=== PATIENT | female | born 1965 | race Caucasian/White ===

== ENCOUNTER 2017-03-21 13:32 | Outpatient (CLI) | payer MEDICARE, MEDICAID ==
--- NOTE | 2017-03-21 21:48 | MRI ---
NONCONTRAST MRI CERVICAL SPINE: Date: 03-21-17 History: Cervical disc displacement. Patient complains of chronic neck pain with pain radiating to t he left arm. Comparison: 03-28-14 FINDINGS: There is straightening of the normal cervical lordotic curvature. There is anterolisthesis of C7 on T1 measuring 4 mm. Since the prior study there has been interval development of a prominent Schmorl' s node in the anterior superior endplate of the T1 vertebral body. There are endplate degenerative c hanges present at the C4-5 level. There is abnormal increased signal intensity seen within the left side facet joints at the C3-4 level with fluid signal intensity in a facet joint. These findings are thought to most likely be attributable to prominent facet degenerative changes. Cervical medullary junction has a normal MRI appearance. C2-3: No disc bulge or disc herniation. Central spinal canal and neural foramina are patent. There a re prominent facet degenerative changes on the left at this level. C3-4: There is mild loss of intervertebral disc height. There is a broad based disc osteophyte compl ex. Prominent facet degenerative changes are seen on the left as described above. Hypertrophy on the left. The right neural foramen is patent. There is moderate left sided neural foraminal narrowing. There is mild effacement of the ventral subarachnoid space. C4-5: There is disc desiccation. There is a broad based disc osteophyte complex and facet hypertroph ic changes. Again, there is effacement of the ventral subarachnoid space with stable mild narrowing of the central spinal canal. Left neural foramen is patent, but there is mild to moderate right side d neural foraminal narrowing. Neural foraminal narrowing does appear slightly improved from the prio r exam. C5-6: There is disc desiccation with loss of intervertebral disc height. There is a broad based disc osteophyte complex with ==== centrally to the right. There is mild effacement of the ventral subara chnoid space. There is moderate right and mild left sided neural foraminal narrowing similar to the prior exam. C6-7: There is mild loss of intervertebral disc height. There is a mild broad based disc osteophyte complex. This results in mild flattening of the ventral aspect of the thecal sac. Neural foramina ar e patent at this level. C7-T1: As described above, there has been interval development of anterolisthesis of C7 on T1 measur ing 4 mm. There is a broad based disc osteophyte complex present. This results in mild narrowing of the central spinal canal. There is severe right and mild left sided neural foraminal narrowing. This does represent interval change from the prior exam. Previously described moderately enlarged lymph node left aspect of the neck is not imaged on today's exam and no definite enlarged lymph node is se en in the visualized paravertebral soft tissues on today's exam. IMPRESSION: Multilevel degenerative changes which are unchanged when compared to the prior exam; although, there has been interval development of anterolisthesis of C7 on T1 measuring 4 mm with interval developme nt of severe right sided neural foraminal narrowing and mild to left neural foraminal narrowing at t his level. Remaining levels as described above. POS: [facility]
== END 2017-03-21 13:33 | disposition home or self-care (01) ==
LOC: SCSMRI 13:32
PROVIDERS: ATTEND Psychiatry & Neurology Neurology
DX: M50.220 Other cervical disc displacement, mid-cervical region, unspecified level (principal); M43.13 Spondylolisthesis, cervicothoracic region; M99.81 Other biomechanical lesions of cervical region; M47.812 Spondylosis without myelopathy or radiculopathy, cervical region
CPT/HCPCS: 72141

== ENCOUNTER 2018-04-10 10:46 | Outpatient (CLI) | payer MEDICARE, MEDICAID | END 2018-04-10 10:47 | disposition home or self-care (01) | LOC: BICMAMMO 10:46 | PROVIDERS: ATTEND Physician Assistant | DX: Z12.31 Encounter for screening mammogram for malignant neoplasm of breast (principal); R92.1 Mammographic calcification found on diagnostic imaging of breast | CPT/HCPCS: 77063; 77067 ==

== ENCOUNTER 2018-05-30 08:55 | Emergency (ER) | payer MEDICARE, MEDICAID ==
[2018-05-30 09:42] LABS: #Basophils 0.1 thou/uL (0.0-0.2); #Eosinphils 0.2 thou/uL (0.0-0.7); #Lymphocytes 1.8 thou/uL (1.20-3.40); #Monocytes 0.7 thou/uL (0.11-0.59); #Neutrophils 5.8 thou/uL (1.40-6.50); %Basophils 0.7 % (0.0-1.0); %Eosinophils 2.1 % (0.0-10.0); %Lymphocytes 20.9 % (21.0-51.0); %Monocytes 8.5 % (0.0-10.0); %Neutrophils 67.8 % (42.0-75.0); Hemoglobin 14.9 g/dL (12.0-16.0); Mean Corpuscular HGB CONC 33.4 g/dL (32.0-36.0); Mean Corpuscular Hemoglobin 31.1 pg (27.0-31.0); Mean Corpuscular Volume 93.3 fL (78.0-98.0); Mean Platelet Volume 6.2 fL (7.4-10.4); Platelet Count 352 thou/uL (130-400); RBC Distribution Width 11.5 % (11.5-14.5); White Blood Cell (WBC) Count 8.5 thou/uL (4.8-10.8)
[2018-05-30 10:02] LABS: ALT (SGPT) 15 U/L (8-55); AST (SGOT) 15 U/L (5-34); Albumin 4.3 g/dL (3.5-5.0); Alkaline Phosphatase 101 U/L (40-150); Anion Gap 13 mmol/L (10-20); BUN (Urea Nitrogen) 12 mg/dL (9.8-20.1); Bilirubin, Total 0.2 mg/dL (0.2-1.2); Calc. Creatinine Clearance 0 mL/min (70-130); Calcium 10.1 mg/dL (7.8-10.44); Carbon Dioxide 25 mmol/L (22-29); Chloride 104 mmol/L (98-107); Estimated GFR-MDRD 57; Globulin 3.8 g/dL (2.4-3.5); Glucose 96 mg/dL (70-105); Potassium 4.1 mmol/L (3.5-5.1); Protein, Total 8.1 g/dL (6.0-8.3); Sodium 138 mmol/L (136-145)
--- NOTE | 2018-05-30 10:43 | CT ---
CT BRAIN WITHOUT CONTRAST: History: Weakness, dizziness. Comparison: MRI brain from 12-10-16. FINDINGS: No acute hemorrhage or infarct. No midline shift or mass effect. Ventricular size and extraaxial CSF spaces are normal. Calvarium is intact. Paranasal sinuses and mastoids are clear. The globes are unremarkable. IMPRESSION: No acute intracranial abnormality. POS: [facility]
--- NOTE | 2018-05-30 10:44 | RAD ---
PORTABLE UPRIGHT FRONTAL CHEST RADIOGRAPH: Date: 05-30-18 Comparison: 09-13-16 History: Dizziness, cough, bronchitis. FINDINGS: Increased diffusing interstitial density noted, stable. No pneumothorax, pleural fluid, focal consoli dation or alveolar edema. Heart and mediastinal contours unremarkable. IMPRESSION: Stable nonspecific diffuse increased linear interstitial density. No focal consolidation or alveolar edema. POS: [facility]
== END 2018-05-30 11:27 | disposition home or self-care (01) ==
LOC: ERS 08:55
DX: R42 Dizziness and giddiness (principal); R53.1 Weakness; R06.02 Shortness of breath; R11.2 Nausea with vomiting, unspecified; T36.8X5A Adverse effect of other systemic antibiotics, initial encounter; J84.10 Pulmonary fibrosis, unspecified; M10.9 Gout, unspecified; F31.9 Bipolar disorder, unspecified
CPT/HCPCS: 70450; 71045; 80053; 84484; 85025; 93005; 94760

== ENCOUNTER 2018-12-15 13:26 | Outpatient (CLI) | payer MEDICARE, MEDICAID ==
--- NOTE | 2018-12-15 15:28 | MRI ---
MRI Lumbar Spine Noncontrast: HISTORY: Lower back pain. Pain in bilateral hips and legs with numbness and tingling. COMPARISON: None FINDINGS: A very tiny subcentimeter increased T2-weighted signal intensity focus is seen in the midportion left kidney too small to characterize. Remaining retroperitoneal structures demonstrate a normal nonenhanced MRI appearance. Conus medullaris is normal in morphology and terminates at the L1-2 level. Normal signal intensity is demonstrated in the bone marrow. T12-L1: There is a mild disc osteophyte complex resulting slight flattening of the ventral aspect of the subarachnoid space. Neural foramina are widely patent L1-2: There is a broad-based disc osteophyte complex with slight superior extrusion of disc material centrally and paracentrally. There is mild flattening of the anterior aspect of the thecal sac. The neural foramina are patent. L2-3: There is broad-based disc osteophyte complex with loss of intervertebral disc height. There is slight effacement of the ventral aspect of the thecal sac. The there is minimal bilateral neural foraminal narrowing. There is trace retrolisthesis of L3 on L4 L3-4: There is loss of intervertebral disc height. A broad-based disc osteophyte complex is present. Mild narrowing of the central spinal canal is noted as well as mild bilateral neural foraminal narrowing. There is trace retrolisthesis of L3 on L4. L4-5: There is a minimal disc osteophyte complex greater laterally on the left. There is no significa nt central canal narrowing. Mild bilateral neural foraminal narrowing is present.. L5-S1: There is a mild disc osteophyte complex with associated tiny annular tear involving the left p osterolateral margin of the intervertebral disc. Slight flattening of the anterior aspect of the thecal sac is present without significant central canal narrowing. The neural foramina are patent. IMPRESSION: 1. Multilevel mild disc degenerative changes. There is no high-grade narrowing of the neural foramina at any level. 2. Trace retrolisthesis of L2-L3 and L3 on L4.
== END 2018-12-15 13:27 | disposition home or self-care (01) ==
LOC: BICMRI 13:26
PROVIDERS: ATTEND Nurse Practitioner Acute Care
DX: M54.42 Lumbago with sciatica, left side (principal); M51.36 Other intervertebral disc degeneration, lumbar region
CPT/HCPCS: 72148

== ENCOUNTER 2019-02-01 13:24 | Outpatient (CLI) | payer MEDICARE, MEDICAID ==
--- NOTE | 2019-02-01 14:22 | CT ---
EXAM: CT Abdomen W Con PROVIDED CLINICAL HISTORY: Pain beneath left breast and feeling of something popping out. Hernia. COMPARISON: 12/17/2004. FINDINGS: Chronic bibasilar lung changes are seen with evidence of emphysematous changes and linear areas of mi ld scarring. Calcified granulomata are seen in the spleen. The liver, pancreas, bilateral adrenal glands, kidneys, and opacified bowel demonstrate a normal CT a ppearance. A small duodenal diverticulum is seen in the third portion of the duodenum. The appendix is visualized and normal in caliber. Vascular calcifications are seen in the abdominal aorta and involving the iliac arteries. No ventral abdominal wall hernia is appreciated. No free fluid, fluid collection, or lymphadenopathy is seen in the abdomen. Mild degenerative changes are seen in the spine with slight retrolisthesis of L3 on L4. IMPRESSION: 1. No evidence of a ventral abdominal wall hernia. 2. No acute findings are seen in the abdomen. 3. Bibasilar chronic lung changes. 4. Vascular calcifications. 5. Degenerative changes in the spine with slight retrolisthesis of L3 on L4.
== END 2019-02-01 13:25 | disposition home or self-care (01) ==
LOC: BICCT 13:24
PROVIDERS: ATTEND Physician Assistant
DX: K46.9 Unspecified abdominal hernia without obstruction or gangrene (principal); I70.90 Unspecified atherosclerosis; M43.16 Spondylolisthesis, lumbar region
CPT/HCPCS: 74160

== ENCOUNTER 2020-06-13 10:07 | Emergency (ER) | payer MEDICARE, MEDICAID ==
[2020-06-13 10:44] LABS: #Eosinphils 0.1 thou/uL (0.0-0.7); #Lymphocytes 1.2 thou/uL (1.20-3.40); #Monocytes 0.8 thou/uL (0.11-0.59); #Neutrophils 8.1 thou/uL (1.40-6.50); %Basophils 0.2 % (0.0-1.0); %Eosinophils 1.3 % (0.0-10.0); %Lymphocytes 11.8 % (21.0-51.0); %Monocytes 7.9 % (0.0-10.0); %Neutrophils 78.8 % (42.0-75.0); Mean Corpuscular HGB CONC 34.3 g/dL (32.0-36.0); Mean Corpuscular Hemoglobin 32.6 pg (27.0-31.0); Mean Corpuscular Volume 95.1 fL (78.0-98.0); Mean Platelet Volume 6.6 fL (7.4-10.4); Platelet Count 273 thou/uL (130-400); RBC Distribution Width 11.9 % (11.5-14.5); Red Blood Cell (RBC) Count 4.28 mill/uL (4.20-5.40); White Blood Cell (WBC) Count 10.3 thou/uL (4.8-10.8)
--- NOTE | 2020-06-13 11:02 | RAD ---
EXAM: XR Chest 1 View Portable PROVIDED CLINICAL HISTORY: Dyspnea COMPARISON: 03/02/2019 FINDINGS: Cardiac and mediastinal silhouette is within normal limits. There is bilateral lower lung zone airspa ce disease. No pleural fluid or pneumothorax apparent. Emphysematous changes are demonstrated. IMPRESSION: Bilateral lower lobe airspace disease. Correlate for pneumonia. Follow-up is recommended.
[2020-06-13 11:11] LABS: ALT (SGPT) 11 U/L (8-55); AST (SGOT) 17 U/L (5-34); Alkaline Phosphatase 82 U/L (40-110); Anion Gap 18 mmol/L (10-20); BUN (Urea Nitrogen) 7 mg/dL (9.8-20.1); Bilirubin, Total 0.4 mg/dL (0.2-1.2); Calc. Creatinine Clearance 0 mL/min (70-130); Carbon Dioxide 24 mmol/L (22-29); Chloride 102 mmol/L (98-107); Globulin 2.8 g/dL (2.4-3.5); Glucose 127 mg/dL (70-105); Potassium 3.8 mmol/L (3.5-5.1); Protein, Total 6.8 g/dL (6.0-8.3); Sodium 140 mmol/L (136-145)
[2020-06-13] MEDS ORDERED: Ondansetron PF 4 MG/2 ML Vial ONE (11:12)
[2020-06-13] MEDS ORDERED: Ketorolac Tromethamine 30 MG/ML VIAL ONE (11:12)
[2020-06-13 18:22] LABS: SARS-CoV-2 PCR by NAA Not Detected (NotDetected)
--- NOTE | 2020-06-28 22:17 | EKG ---
Test Reason : CP/SOB Blood Pressure : / mmHG Vent. Rate : 080 BPM Atrial Rate : 080 BPM P-R Int : 124 ms QRS Dur : 098 ms QT Int : 360 ms P-R-T Axes : 070 044 036 degrees QTc Int : 415 ms Normal sinus rhythm Possible Left atrial enlargement RSR' or QR pattern in V1 suggests right ventricular conduction delay Nonspecific ST and T wave abnormality Abnormal ECG Confirmed by JAMES GONZALEZ DO ([id number]), editorial manager TONY RANDALL ([id number] on 06/28/2020 10:17:09 PM Referred By: Confirmed By:JAMES GONZALEZ DO
== END 2020-06-13 13:57 | disposition home or self-care (01) ==
LOC: ERS 10:07
DX: J18.9 Pneumonia, unspecified organism (principal); Z20.822 Contact with and (suspected) exposure to COVID-19; M10.9 Gout, unspecified; F17.290 Nicotine dependence, other tobacco product, uncomplicated
CPT/HCPCS: 71045; 80053; 84484; 85025; 93005; 96374; 96375; 99285; U0003; U0005; 87635; J1885; J2405

== ENCOUNTER 2020-08-29 17:17 | Inpatient (IN) | payer MEDICARE, MEDICAID ==
[~2020-08-29 17:17] MED LIST: Iopamidol-370 76% 500 ML 1 ML ONE
[2020-08-29 18:19] LABS: #Eosinphils 0.2 thou/uL (0.0-0.7); #Lymphocytes 1.8 thou/uL (1.20-3.40); #Monocytes 1.2 thou/uL (0.11-0.59); #Neutrophils 11.6 thou/uL (1.40-6.50); %Basophils 0.3 % (0.0-1.0); %Lymphocytes 12.2 % (21.0-51.0); %Monocytes 7.9 % (0.0-10.0); %Neutrophils 78.6 % (42.0-75.0); Hemoglobin 8.9 g/dL (12.0-16.0); Mean Corpuscular Hemoglobin 28.7 pg (27.0-31.0); Mean Corpuscular Volume 92.5 fL (78.0-98.0); Mean Platelet Volume 6.8 fL (7.4-10.4); Platelet Count 443 thou/uL (130-400); RBC Distribution Width 12.1 % (11.5-14.5); Red Blood Cell (RBC) Count 3.09 mill/uL (4.20-5.40); White Blood Cell (WBC) Count 14.8 thou/uL (4.8-10.8)
[2020-08-29 18:47] LABS: ALT (SGPT) 9 U/L (8-55); AST (SGOT) 17 U/L (5-34); Albumin 3.9 g/dL (3.5-5.0); Alkaline Phosphatase 97 U/L (40-110); Anion Gap 17 mmol/L (10-20); BUN (Urea Nitrogen) 5 mg/dL (9.8-20.1); Bilirubin, Total 0.5 mg/dL (0.2-1.2); Calc. Creatinine Clearance 0 mL/min (70-130); Calcium 8.8 mg/dL (7.8-10.44); Carbon Dioxide 23 mmol/L (22-29); Chloride 101 mmol/L (98-107); Globulin 2.8 g/dL (2.4-3.5); Glucose 99 mg/dL (70-105); Potassium 3.3 mmol/L (3.5-5.1); Protein, Total 6.7 g/dL (6.0-8.3); Sodium 138 mmol/L (136-145)
[2020-08-29] MEDS ORDERED: Albuterol Sulfate 2.5 mg/3 ml Neb ONE (18:56)
[2020-08-29] MEDS ORDERED: Cefepime 1 GM VIAL ONE (20:38)
[2020-08-29 21:57] LABS: SARS-CoV-2 NAA Rapid Test Not Detected (NotDetected)
[2020-08-30] MEDS ORDERED: Acetaminophen 325 MG TAB PO PRN (00:15)
[2020-08-30] MEDS ORDERED: Ondansetron ODT 4 MG TAB SL PRN (00:15)
[2020-08-30] MEDS ORDERED: Ondansetron PF 4 MG/2 ML Vial IVP PRN ×2 (00:15)
[2020-08-30] MEDS ORDERED: Potassium Chloride 20 MEQ TAB PO SCH (01:45)
[2020-08-30 02:41] LABS: Bacteria/HPF None Seen HPF (None Seen); Bilirubin Negative (Negative); Blood, Urine Negative (Negative); Clarity Clear (Clear); Glucose, Urine (Dipstick) Normal (Negative); Ketone, Urine Trace mg/dL (Negative); Leukocyte Negative Leu/uL (Negative); Nitrite Negative (Negative); Protein, Urine (Dipstick) 30 mg/dL (Neg-Trace); RBC/HPF 0-3 HPF (0-3); Specific Gravity, Urine 1.048 (1.002-1.036); Squamous Epithelial 0-3 HPF (0-3); Urobilinogen Normal mg/dL (Less than 2); WBC/HPF 0-3 HPF (0-3); pH, Urine 6.5 (5.0-9.0)
[2020-08-30 02:43] LABS: Urine Culture Reflex No No
[2020-08-30] MEDS: methylPREDNISolone Sod Succ 40 MG VIAL IVPB SCH ×2 (02:56→13:23)
[2020-08-30 05:09] LABS: Iron 19 ug/dL (50-170); Iron Binding Capacity, Total 188 mcg/dL (265-497)
[2020-08-30 05:17] LABS: Anion Gap 17 mmol/L (10-20); BUN (Urea Nitrogen) 7 mg/dL (9.8-20.1); Calc. Creatinine Clearance 92 mL/min (70-130); Carbon Dioxide 23 mmol/L (22-29); Chloride 101 mmol/L (98-107); Glucose 100 mg/dL (70-105); Iron 19 ug/dL (50-170); Iron Binding Capacity, Total 188 mcg/dL (265-497); Magnesium 2.1 mg/dL (1.6-2.6); Potassium 3.4 mmol/L (3.5-5.1); Sodium 138 mmol/L (136-145)
[2020-08-30 08:18] LABS: #Lymphocytes 0.5 thou/uL (1.20-3.40); #Monocytes 0.2 thou/uL (0.11-0.59); %Eosinophils 0.1 % (0.0-10.0); %Lymphocytes 6.3 % (21.0-51.0); %Monocytes 2.3 % (0.0-10.0); %Neutrophils 91.3 % (42.0-75.0); Hemoglobin 11.9 g/dL (12.0-16.0); Mean Corpuscular HGB CONC 31.8 g/dL (32.0-36.0); Mean Corpuscular Hemoglobin 29.8 pg (27.0-31.0); Mean Corpuscular Volume 93.9 fL (78.0-98.0); Mean Platelet Volume 6.9 fL (7.4-10.4); Platelet Count 316 thou/uL (130-400); RBC Distribution Width 12.1 % (11.5-14.5); Red Blood Cell (RBC) Count 3.97 mill/uL (4.20-5.40); White Blood Cell (WBC) Count 7.7 thou/uL (4.8-10.8)
[2020-08-30 08:23] VITALS: BMI 22.4
[2020-08-30] MEDS ORDERED: HYDROcodone/Acetaminophen 10/325 mg Tablet PO PRN (12:42)
[2020-08-30] MEDS ORDERED: ALPRAZolam 0.25 MG TAB PO PRN (12:45)
[2020-08-30] MEDS: Methocarbamol 500 MG TAB PO SCH ×2 (13:23→21:21)
[2020-08-30] MEDS ORDERED: CeleCOXIB 100 MG CAP PO SCH (14:00)
[2020-08-30] MEDS ORDERED: FLUoxetine HCl 20 MG CAP PO SCH (14:00)
[2020-08-30] MEDS: guaiFENesin ER 600 MG TAB PO SCH (21:20)
[2020-08-31] MEDS: methylPREDNISolone Sod Succ 40 MG VIAL IVPB SCH ×2 (01:51→14:25)
[2020-08-31] MEDS: Methocarbamol 500 MG TAB PO SCH ×3 (05:00→20:12)
[2020-08-31 05:45] LABS: #Monocytes 0.7 thou/uL (0.11-0.59); #Neutrophils 13.9 thou/uL (1.40-6.50); %Eosinophils 0.1 % (0.0-10.0); %Lymphocytes 6.2 % (21.0-51.0); %Monocytes 4.8 % (0.0-10.0); %Neutrophils 88.8 % (42.0-75.0); Hemoglobin 11.6 g/dL (12.0-16.0); Mean Corpuscular HGB CONC 32.8 g/dL (32.0-36.0); Mean Corpuscular Hemoglobin 31.3 pg (27.0-31.0); Mean Corpuscular Volume 95.6 fL (78.0-98.0); Mean Platelet Volume 7.3 fL (7.4-10.4); Platelet Count 328 thou/uL (130-400); RBC Distribution Width 12.2 % (11.5-14.5); Red Blood Cell (RBC) Count 3.69 mill/uL (4.20-5.40); White Blood Cell (WBC) Count 15.6 thou/uL (4.8-10.8)
[2020-08-31 05:53] LABS: Anion Gap 17 mmol/L (10-20); BUN (Urea Nitrogen) 13 mg/dL (9.8-20.1); Calc. Creatinine Clearance 92 mL/min (70-130); Calcium 9.4 mg/dL (7.8-10.44); Carbon Dioxide 24 mmol/L (22-29); Chloride 100 mmol/L (98-107); Glucose 125 mg/dL (70-105); Magnesium 2.2 mg/dL (1.6-2.6); Potassium 4.1 mmol/L (3.5-5.1); Sodium 137 mmol/L (136-145)
[2020-08-31] MEDS: CeleCOXIB 100 MG CAP PO SCH (08:17)
[2020-08-31] MEDS: FLUoxetine HCl 20 MG CAP PO SCH (08:17)
[2020-08-31] MEDS: Cyanocobalamin (Vitamin B-12) 1,000 MCG TAB PO SCH (08:17)
[2020-08-31] MEDS: Pramipexole Di-HCl 0.25 MG TAB PO SCH ×3 (08:18→20:12)
[2020-08-31] MEDS: Oxybutynin ER 5 MG TAB PO SCH (08:18)
[2020-08-31] MEDS: guaiFENesin ER 600 MG TAB PO SCH ×2 (08:18→20:13)
[2020-08-31] MEDS: busPIRone HCl 10 MG TAB PO SCH (20:12)
[2020-08-31] MEDS: traZODone HCl 50 MG TAB PO SCH (20:13)
[2020-08-31] MEDS: Temazepam 15 MG CAP PO PRN (21:26)
[2020-09-01] MEDS: methylPREDNISolone Sod Succ 40 MG VIAL IVPB SCH ×2 (01:22→14:51)
[2020-09-01] MEDS: Acetaminophen 325 MG TAB PO PRN ×2 (01:25→12:04)
[2020-09-01 05:22] LABS: #Lymphocytes 0.9 thou/uL (1.20-3.40); #Monocytes 0.4 thou/uL (0.11-0.59); #Neutrophils 10.5 thou/uL (1.40-6.50); %Basophils 0.3 % (0.0-1.0); %Eosinophils 0.1 % (0.0-10.0); %Lymphocytes 7.8 % (21.0-51.0); %Monocytes 3.6 % (0.0-10.0); %Neutrophils 88.3 % (42.0-75.0); Hemoglobin 11.6 g/dL (12.0-16.0); Mean Corpuscular HGB CONC 31.5 g/dL (32.0-36.0); Mean Corpuscular Volume 95.4 fL (78.0-98.0); Platelet Count 325 thou/uL (130-400); RBC Distribution Width 12.4 % (11.5-14.5); Red Blood Cell (RBC) Count 3.88 mill/uL (4.20-5.40); White Blood Cell (WBC) Count 11.9 thou/uL (4.8-10.8)
[2020-09-01 05:45] LABS: Anion Gap 17 mmol/L (10-20); BUN (Urea Nitrogen) 20 mg/dL (9.8-20.1); Calc. Creatinine Clearance 84 mL/min (70-130); Calcium 9.3 mg/dL (7.8-10.44); Carbon Dioxide 25 mmol/L (22-29); Chloride 100 mmol/L (98-107); Glucose 126 mg/dL (70-105); Magnesium 2.3 mg/dL (1.6-2.6); Potassium 4.6 mmol/L (3.5-5.1); Sodium 137 mmol/L (136-145)
[2020-09-01] MEDS: Methocarbamol 500 MG TAB PO SCH ×3 (06:37→21:47)
[2020-09-01] MEDS: CeleCOXIB 100 MG CAP PO SCH (09:04)
[2020-09-01] MEDS: Oxybutynin ER 5 MG TAB PO SCH (09:05)
[2020-09-01] MEDS: busPIRone HCl 10 MG TAB PO SCH ×2 (09:05→21:47)
[2020-09-01] MEDS: FLUoxetine HCl 20 MG CAP PO SCH (09:05)
[2020-09-01] MEDS: Cyanocobalamin (Vitamin B-12) 1,000 MCG TAB PO SCH (09:05)
[2020-09-01] MEDS: guaiFENesin ER 600 MG TAB PO SCH ×2 (09:05→21:47)
[2020-09-01] MEDS: Pramipexole Di-HCl 0.25 MG TAB PO SCH (21:47)
[2020-09-01] MEDS: traZODone HCl 50 MG TAB PO SCH (21:47)
[2020-09-02] MEDS: Methocarbamol 500 MG TAB PO SCH ×3 (06:30→21:16)
[2020-09-02] MEDS: Cyanocobalamin (Vitamin B-12) 1,000 MCG TAB PO SCH (08:01)
[2020-09-02] MEDS: predniSONE 20 MG TAB PO SCH (08:01)
[2020-09-02] MEDS: CeleCOXIB 100 MG CAP PO SCH (08:01)
[2020-09-02] MEDS: Oxybutynin ER 5 MG TAB PO SCH (08:02)
[2020-09-02] MEDS: busPIRone HCl 10 MG TAB PO SCH ×2 (08:02→21:15)
[2020-09-02] MEDS: guaiFENesin ER 600 MG TAB PO SCH ×2 (08:02→21:16)
[2020-09-02] MEDS: FLUoxetine HCl 20 MG CAP PO SCH (08:02)
[2020-09-02] MEDS: Pramipexole Di-HCl 0.25 MG TAB PO SCH (21:16)
[2020-09-02] MEDS: traZODone HCl 50 MG TAB PO SCH (21:16)
[2020-09-02] MEDS: Acetaminophen 325 MG TAB PO PRN (21:17)
[2020-09-03] MEDS: Methocarbamol 500 MG TAB PO SCH ×3 (06:01→21:04)
[2020-09-03] MEDS: CeleCOXIB 100 MG CAP PO SCH (08:47)
[2020-09-03] MEDS: predniSONE 20 MG TAB PO SCH (08:48)
[2020-09-03] MEDS: FLUoxetine HCl 20 MG CAP PO SCH (08:49)
[2020-09-03] MEDS: guaiFENesin ER 600 MG TAB PO SCH ×2 (08:49→21:03)
[2020-09-03] MEDS: Oxybutynin ER 5 MG TAB PO SCH (08:49)
[2020-09-03] MEDS: Cyanocobalamin (Vitamin B-12) 1,000 MCG TAB PO SCH (08:49)
[2020-09-03] MEDS: busPIRone HCl 10 MG TAB PO SCH ×2 (08:50→21:03)
[2020-09-03] MEDS: Pramipexole Di-HCl 0.25 MG TAB PO SCH (21:03)
[2020-09-03] MEDS: traZODone HCl 50 MG TAB PO SCH (21:03)
[2020-09-04] MEDS: Methocarbamol 500 MG TAB PO SCH ×3 (05:49→22:24)
[2020-09-04] MEDS: guaiFENesin ER 600 MG TAB PO SCH ×2 (08:14→19:55)
[2020-09-04] MEDS: Cyanocobalamin (Vitamin B-12) 1,000 MCG TAB PO SCH (08:14)
[2020-09-04] MEDS: FLUoxetine HCl 20 MG CAP PO SCH (08:14)
[2020-09-04] MEDS: predniSONE 20 MG TAB PO SCH (08:14)
[2020-09-04] MEDS: CeleCOXIB 100 MG CAP PO SCH (08:15)
[2020-09-04] MEDS: Oxybutynin ER 5 MG TAB PO SCH (08:15)
[2020-09-04] MEDS: busPIRone HCl 10 MG TAB PO SCH ×2 (08:16→19:54)
[2020-09-04] MEDS: Pramipexole Di-HCl 0.25 MG TAB PO SCH (19:55)
[2020-09-04] MEDS: traZODone HCl 50 MG TAB PO SCH (19:55)
[2020-09-04 20:36] LABS: #Lymphocytes 1.9 thou/uL (1.20-3.40); #Monocytes 0.8 thou/uL (0.11-0.59); #Neutrophils 9.5 thou/uL (1.40-6.50); %Basophils 0.1 % (0.0-1.0); %Eosinophils 0.3 % (0.0-10.0); %Lymphocytes 15.7 % (21.0-51.0); %Monocytes 6.4 % (0.0-10.0); %Neutrophils 77.4 % (42.0-75.0); Hemoglobin 12.4 g/dL (12.0-16.0); Mean Corpuscular HGB CONC 32.4 g/dL (32.0-36.0); Mean Corpuscular Hemoglobin 30.4 pg (27.0-31.0); Mean Corpuscular Volume 93.8 fL (78.0-98.0); Mean Platelet Volume 6.3 fL (7.4-10.4); Platelet Count 448 thou/uL (130-400); RBC Distribution Width 12.2 % (11.5-14.5); Red Blood Cell (RBC) Count 4.08 mill/uL (4.20-5.40); White Blood Cell (WBC) Count 12.2 thou/uL (4.8-10.8)
[2020-09-04 20:52] LABS: Lactic Acid 2.2 mmol/L (0.5-2.2)
[2020-09-04 20:58] LABS: ALT (SGPT) 21 U/L (8-55); AST (SGOT) 12 U/L (5-34); Albumin 3.5 g/dL (3.5-5.0); Alkaline Phosphatase 73 U/L (40-110); Anion Gap 13 mmol/L (10-20); BUN (Urea Nitrogen) 24 mg/dL (9.8-20.1); Bilirubin, Total Less than 0.2 mg/dL (0.2-1.2); Calc. Creatinine Clearance 80 mL/min (70-130); Calcium 8.8 mg/dL (7.8-10.44); Carbon Dioxide 27 mmol/L (22-29); Chloride 97 mmol/L (98-107); Globulin 2.7 g/dL (2.4-3.5); Glucose 120 mg/dL (70-105); Magnesium 2.2 mg/dL (1.6-2.6); Potassium 3.9 mmol/L (3.5-5.1); Protein, Total 6.2 g/dL (6.0-8.3); Sodium 133 mmol/L (136-145)
[2020-09-04] MEDS: Temazepam 15 MG CAP PO PRN (22:24)
[2020-09-05] MEDS ORDERED: Sodium Chloride 0.9% 250 ML IV SCH (00:15)
[2020-09-05 05:19] LABS: #Basophils 0.1 thou/uL (0.0-0.2); #Eosinphils 0.1 thou/uL (0.0-0.7); #Lymphocytes 3.4 thou/uL (1.20-3.40); #Monocytes 0.9 thou/uL (0.11-0.59); #Neutrophils 6.5 thou/uL (1.40-6.50); %Basophils 0.8 % (0.0-1.0); %Eosinophils 1.1 % (0.0-10.0); %Lymphocytes 30.8 % (21.0-51.0); %Neutrophils 59.3 % (42.0-75.0); Hemoglobin 12.3 g/dL (12.0-16.0); Mean Corpuscular HGB CONC 32.5 g/dL (32.0-36.0); Mean Corpuscular Hemoglobin 30.6 pg (27.0-31.0); Mean Corpuscular Volume 94.1 fL (78.0-98.0); Mean Platelet Volume 6.3 fL (7.4-10.4); Platelet Count 421 thou/uL (130-400); RBC Distribution Width 12.3 % (11.5-14.5); Red Blood Cell (RBC) Count 4.04 mill/uL (4.20-5.40); White Blood Cell (WBC) Count 10.9 thou/uL (4.8-10.8)
[2020-09-05] MEDS: Methocarbamol 500 MG TAB PO SCH ×2 (05:26→15:32)
[2020-09-05 05:43] LABS: Lactic Acid 1.4 mmol/L (0.5-2.2)
[2020-09-05 05:47] LABS: Anion Gap 13 mmol/L (10-20); BUN (Urea Nitrogen) 20 mg/dL (9.8-20.1); Calc. Creatinine Clearance 89 mL/min (70-130); Carbon Dioxide 29 mmol/L (22-29); Chloride 99 mmol/L (98-107); Glucose 75 mg/dL (70-105); Magnesium 2.5 mg/dL (1.6-2.6); Potassium 3.9 mmol/L (3.5-5.1); Sodium 137 mmol/L (136-145)
[2020-09-05] MEDS: CeleCOXIB 100 MG CAP PO SCH (09:08)
[2020-09-05] MEDS: Oxybutynin ER 5 MG TAB PO SCH (09:09)
[2020-09-05] MEDS: busPIRone HCl 10 MG TAB PO SCH (09:10)
[2020-09-05] MEDS: Cyanocobalamin (Vitamin B-12) 1,000 MCG TAB PO SCH (09:10)
[2020-09-05] MEDS: guaiFENesin ER 600 MG TAB PO SCH (09:10)
[2020-09-05] MEDS: predniSONE 20 MG TAB PO SCH (09:11)
[2020-09-05] MEDS: FLUoxetine HCl 20 MG CAP PO SCH (09:11)
[2020-09-05 12:31] VITALS: BP 106/64; TEMP 98.7
== END 2020-09-05 15:50 | disposition home or self-care (01) | DRG 871 ==
LOC: ERS 17:17 → 2SW 22:10 → OBSVTOIN 22:10
PROVIDERS: ADMIT Internal Medicine; ATTEND Family Medicine
DX: A41.9 Sepsis, unspecified organism (principal); J96.01 Acute respiratory failure with hypoxia; J18.9 Pneumonia, unspecified organism; J84.10 Pulmonary fibrosis, unspecified; D64.9 Anemia, unspecified; F14.10 Cocaine abuse, uncomplicated; F31.9 Bipolar disorder, unspecified; F41.9 Anxiety disorder, unspecified; M10.9 Gout, unspecified; Z20.822 Contact with and (suspected) exposure to COVID-19; G89.4 Chronic pain syndrome; M54.9 Dorsalgia, unspecified; Z88.1 Allergy status to other antibiotic agents; Z79.899 Other long term (current) drug therapy; Z79.51 Long term (current) use of inhaled steroids; Z90.710 Acquired absence of both cervix and uterus
CPT/HCPCS: 0240U; 36415; 71045; 71275; 80048; 80053; 81001; 82274; 82728; 83540; 83550; 83605; 83735; 83880; 84145; 84484; 85025; 85379; 85652; 86140; 87040; 87070; 87205; 93005; 94640; 94760; 96365; 96366; 96367; 96375; 96376; G0378; J0692; J1956; J2920; J7512; J7611; J7620; Q9967

== ENCOUNTER 2020-10-06 12:20 | Outpatient (CLI) | payer MEDICARE, MEDICAID | END 2020-10-06 12:21 | disposition home or self-care (01) | LOC: BICRAD 12:20 | PROVIDERS: ATTEND Internal Medicine Critical Care Medicine | DX: R06.00 Dyspnea, unspecified (principal); J98.4 Other disorders of lung; R91.8 Other nonspecific abnormal finding of lung field | CPT/HCPCS: 71046 ==

== ENCOUNTER 2021-02-27 09:05 | Outpatient (CLI) | payer MEDICARE | END 2021-02-27 09:06 | disposition home or self-care (01) | LOC: BICRAD 09:05 | PROVIDERS: ATTEND Internal Medicine Critical Care Medicine | DX: R06.00 Dyspnea, unspecified (principal); R91.8 Other nonspecific abnormal finding of lung field | CPT/HCPCS: 71046 ==

== ENCOUNTER 2021-12-12 12:54 | Emergency (ER) | payer MEDICARE, OTHER ==
[2021-12-12 13:32] LABS: #Eosinphils 0.5 thou/uL (0.0-0.7); #Lymphocytes 1.6 thou/uL (1.20-3.40); #Monocytes 0.9 thou/uL (0.11-0.59); #Neutrophils 4.4 thou/uL (1.40-6.50); %Basophils 0.5 % (0.0-1.0); %Eosinophils 6.9 % (0.0-10.0); %Lymphocytes 21.5 % (21.0-51.0); %Monocytes 12.2 % (0.0-10.0); %Neutrophils 58.9 % (42.0-75.0); Hemoglobin 12.9 g/dL (12.0-16.0); Mean Corpuscular HGB CONC 33.9 g/dL (32.0-36.0); Mean Corpuscular Hemoglobin 33.2 pg (27.0-31.0); Mean Corpuscular Volume 98.1 fL (78.0-98.0); Mean Platelet Volume 6.3 fL (7.4-10.4); Platelet Count 304 thou/uL (130-400); RBC Distribution Width 11.7 % (11.5-14.5); Red Blood Cell (RBC) Count 3.87 mill/uL (4.20-5.40); White Blood Cell (WBC) Count 7.4 thou/uL (4.8-10.8)
[2021-12-12] MEDS ORDERED: cefTRIAXone\\ROCEPHIN 1 GM VIAL ONE (14:06)
[2021-12-12] MEDS ORDERED: methylPREDNISolone Sod Succ/PF 125 MG/2 ML VIAL ONE (14:06)
[2021-12-12 14:17] LABS: Bilirubin Negative (Negative); Blood, Urine Negative (Negative); Clarity Clear (Clear); Glucose, Urine (Dipstick) Normal (Negative); Ketone, Urine Negative (Negative); Leukocyte Negative Leu/uL (Negative); Nitrite Negative (Negative); Protein, Urine (Dipstick) 10 mg/dL (Neg-Trace); Specific Gravity, Urine 1.023 (1.002-1.036); Urobilinogen Normal mg/dL (Less than 2); pH, Urine 5.5 (5.0-9.0)
[2021-12-12 14:21] LABS: ALT (SGPT) 25 U/L (8-55); AST (SGOT) 35 U/L (5-34); Alkaline Phosphatase 90 U/L (40-110); Anion Gap 20 mmol/L (10-20); BUN (Urea Nitrogen) 15 mg/dL (9.8-20.1); Bilirubin, Total 0.4 mg/dL (0.2-1.2); CK (CPK) 60 U/L (29-168); Calc. Creatinine Clearance 0 mL/min (70-130); Calcium 9.6 mg/dL (7.8-10.44); Carbon Dioxide 22 mmol/L (22-29); Chloride 100 mmol/L (98-107); Estimated GFR 90; Globulin 3.5 g/dL (2.4-3.5); Glucose 125 mg/dL (70-105); Potassium 4.7 mmol/L (3.5-5.1); Protein, Total 7.5 g/dL (6.0-8.3); Sodium 137 mmol/L (136-145)
[2021-12-12] MEDS ORDERED: Iopamidol-370 76% 500 ML 1 ML ONE (14:34)
== END 2021-12-12 16:19 | disposition home or self-care (01) ==
LOC: ERS 12:54
DX: J84.10 Pulmonary fibrosis, unspecified (principal); F17.210 Nicotine dependence, cigarettes, uncomplicated; M19.90 Unspecified osteoarthritis, unspecified site; M10.9 Gout, unspecified; Z79.899 Other long term (current) drug therapy
CPT/HCPCS: 36415; 71045; 71275; 80053; 81003; 82550; 84484; 85025; 85379; 93005; 94640; 96374; 96375; J0696; J2930; J7620; Q9967

== ENCOUNTER 2022-01-30 15:48 | Inpatient (IN) | payer MEDICARE, OTHER ==
[2022-01-30 15:55] VITALS: BMI 17.2
[2022-01-30] MEDS ORDERED: Acetaminophen 325 MG TAB PO PRN (16:06)
[2022-01-30] MEDS ORDERED: Bisacodyl 5 MG TAB PO PRN (16:06)
[2022-01-30] MEDS ORDERED: Ondansetron PF 4 MG/2 ML Vial IVP PRN (16:06)
[2022-01-30] MEDS ORDERED: Bisacodyl 10 MG SUPP PR PRN (16:06)
[2022-01-30] MEDS ORDERED: tiZANidine HCl 4 MG TAB PO PRN (16:18)
[2022-01-30] MEDS ORDERED: Aspirin 325 mg Enteric Coated Tablet PO SCH (18:15)
[2022-01-30] MEDS: HYDROcodone/Acetaminophen 10/325 mg Tablet PO PRN (18:32)
[2022-01-30] MEDS: Mometasone/Formoterol 200/5 60 PUFF INH SCH (18:43)
[2022-01-30] MEDS: Atorvastatin Calcium 20 MG TAB PO SCH (20:42)
[2022-01-30] MEDS: Famotidine 20 MG TAB PO SCH (20:43)
[2022-01-30] MEDS: Benztropine 1 MG TAB PO SCH (20:43)
[2022-01-30] MEDS: busPIRone HCl 10 MG TAB PO SCH (20:43)
[2022-01-30] MEDS: Nicotine 14 MG PATCH TD SCH (20:43)
[2022-01-30] MEDS: Pramipexole Di-HCl 0.25 MG TAB PO SCH (20:44)
[2022-01-30] MEDS: Oxybutynin 5 MG TAB PO SCH (20:44)
[2022-01-30] MEDS: OLANZapine 5 MG TAB PO SCH (20:44)
[2022-01-30] MEDS: traZODone HCl 150 MG TAB PO SCH (20:45)
[2022-01-30] MEDS: Senokot S 8.6-50 MG TAB PO PRN (20:53)
[2022-01-30 22:03] LABS: Amphetamine Not Detected (NotDetected); Barbiturates Screen Not Detected (NotDetected); Benzodiazepine Screen Not Detected (NotDetected); Cocaine Metabolite Screen Detected (NotDetected); Methadone Not Detected (NotDetected); Methamphetamine Not Detected (NotDetected); Opiate Screen Not Detected (NotDetected); Oxycodone Screen Not Detected (NotDetected); Phencyclidine (PCP) Not Detected (NotDetected); THC/Cannabinoid Screen Not Detected (NotDetected); Tricyclic Screen Not Detected (NotDetected)
[2022-01-30] MEDS ORDERED: ZALEPLON 5 MG PO SCH (23:59)
[2022-01-31 04:57] LABS: #Lymphocytes 0.9 thou/uL (1.20-3.40); #Monocytes 0.9 thou/uL (0.11-0.59); #Neutrophils 11.1 thou/uL (1.40-6.50); %Eosinophils 0.1 % (0.0-10.0); %Lymphocytes 6.6 % (21.0-51.0); %Neutrophils 86.2 % (42.0-75.0); Hemoglobin 11.3 g/dL (12.0-16.0); Mean Corpuscular HGB CONC 33.3 g/dL (32.0-36.0); Mean Corpuscular Hemoglobin 32.7 pg (27.0-31.0); Mean Corpuscular Volume 98.3 fL (78.0-98.0); Platelet Count 297 thou/uL (130-400); RBC Distribution Width 11.6 % (11.5-14.5); Red Blood Cell (RBC) Count 3.45 mill/uL (4.20-5.40); White Blood Cell (WBC) Count 12.9 thou/uL (4.8-10.8)
[2022-01-31 05:04] LABS: Hemoglobin A1c 5.1 % (4.0-6.0)
[2022-01-31 05:19] LABS: ALT (SGPT) 11 U/L (8-55); AST (SGOT) 10 U/L (5-34); Albumin 3.7 g/dL (3.5-5.0); Alkaline Phosphatase 75 U/L (40-110); Anion Gap 12 mmol/L (10-20); BUN (Urea Nitrogen) 11 mg/dL (9.8-20.1); Bilirubin, Direct 0.1 mg/dL (0.1-0.3); Bilirubin, Total 0.2 mg/dL (0.2-1.2); Calc. Creatinine Clearance 64 mL/min (70-130); Calcium 9.6 mg/dL (7.8-10.44); Carbon Dioxide 25 mmol/L (22-29); Cardiac Risk 2.5 (Less than 4.5); Chloride 104 mmol/L (98-107); Cholesterol 118 mg/dl (< 200 Desired); Estimated GFR 100; Glucose 137 mg/dL (70-105); HDL Cholesterol 47 mg/dL (>60 Neg Risk); LDL Cholesterol, Calculated 61 mg/dL; Potassium 4.4 mmol/L (3.5-5.1); Protein, Total 6.8 g/dL (6.0-8.3); Sodium 137 mmol/L (136-145); Triglycerides 51 mg/dL (Less than 150)
[2022-01-31] MEDS: Mometasone/Formoterol 200/5 60 PUFF INH SCH ×2 (06:37→19:18)
[2022-01-31] MEDS ORDERED: Regadenoson 0.4 MG/5 ML SYRINGE ONE (08:24)
[2022-01-31] MEDS: HYDROcodone/Acetaminophen 10/325 mg Tablet PO PRN ×2 (09:38→15:43)
[2022-01-31] MEDS: Oxybutynin 5 MG TAB PO SCH ×2 (09:39→20:36)
[2022-01-31] MEDS: Famotidine 20 MG TAB PO SCH ×2 (09:39→20:35)
[2022-01-31] MEDS: FLUoxetine HCl 20 MG CAP PO SCH (09:39)
[2022-01-31] MEDS: Enoxaparin Sodium 40 MG/0.4 ML SYRINGE SC SCH (09:39)
[2022-01-31] MEDS: Cyanocobalamin (Vitamin B-12) 1,000 MCG TAB PO SCH (09:39)
[2022-01-31] MEDS: predniSONE 20 MG TAB PO SCH (09:40)
[2022-01-31] MEDS: Aspirin 81 mg Enteric Coated Tablet PO SCH (09:40)
[2022-01-31] MEDS: busPIRone HCl 10 MG TAB PO SCH ×2 (09:40→20:36)
[2022-01-31] MEDS: Nicotine 14 MG PATCH TD SCH (15:18)
[2022-01-31] MEDS ORDERED: Azithromycin 500 MG in Sodium Chloride 0.9% 250 ML 250 ML IVPB SCH (17:45)
[2022-01-31] MEDS ORDERED: cefTRIAXone\\ROCEPHIN 1 GM in Sodium Chloride 0.9% 100 ML IVPB SCH (20:00)
[2022-01-31] MEDS: OLANZapine 5 MG TAB PO SCH (20:35)
[2022-01-31] MEDS: traZODone HCl 150 MG TAB PO SCH (20:35)
[2022-01-31] MEDS: Benztropine 1 MG TAB PO SCH (20:35)
[2022-01-31] MEDS: Pramipexole Di-HCl 0.25 MG TAB PO SCH (20:35)
[2022-01-31] MEDS: Cefepime 1 GM in Sodium Chloride 0.9% 100 ML IVPB SCH (20:36)
[2022-01-31] MEDS: Atorvastatin Calcium 20 MG TAB PO SCH (20:39)
[2022-01-31] MEDS: ZALEPLON 5 MG PO SCH (21:37)
[2022-01-31] MEDS: Benzonatate 100 MG CAP PO PRN (21:39)
[2022-02-01] MEDS: HYDROcodone/Acetaminophen 10/325 mg Tablet PO PRN ×3 (03:19→18:29)
[2022-02-01 05:13] LABS: #Eosinphils 0.1 thou/uL (0.0-0.7); #Lymphocytes 2.4 thou/uL (1.20-3.40); #Neutrophils 10.1 thou/uL (1.40-6.50); %Basophils 0.3 % (0.0-1.0); %Eosinophils 0.5 % (0.0-10.0); %Lymphocytes 17.3 % (21.0-51.0); %Monocytes 7.5 % (0.0-10.0); %Neutrophils 74.4 % (42.0-75.0); Hemoglobin 11.2 g/dL (12.0-16.0); Mean Corpuscular HGB CONC 33.2 g/dL (32.0-36.0); Mean Corpuscular Hemoglobin 32.9 pg (27.0-31.0); Mean Corpuscular Volume 99.1 fL (78.0-98.0); Platelet Count 304 thou/uL (130-400); RBC Distribution Width 11.7 % (11.5-14.5); Red Blood Cell (RBC) Count 3.41 mill/uL (4.20-5.40); White Blood Cell (WBC) Count 13.6 thou/uL (4.8-10.8)
[2022-02-01 05:31] LABS: Anion Gap 12 mmol/L (10-20); BUN (Urea Nitrogen) 17 mg/dL (9.8-20.1); Calc. Creatinine Clearance 65 mL/min (70-130); Calcium 9.5 mg/dL (7.8-10.44); Carbon Dioxide 28 mmol/L (22-29); Chloride 102 mmol/L (98-107); Estimated GFR 102; Glucose 101 mg/dL (70-105); Magnesium 1.9 mg/dL (1.6-2.6); Sodium 138 mmol/L (136-145)
[2022-02-01] MEDS: Mometasone/Formoterol 200/5 60 PUFF INH SCH ×2 (06:31→18:50)
[2022-02-01] MEDS: Aspirin 81 mg Enteric Coated Tablet PO SCH (10:21)
[2022-02-01] MEDS: busPIRone HCl 10 MG TAB PO SCH ×2 (10:21→21:14)
[2022-02-01] MEDS: Famotidine 20 MG TAB PO SCH ×2 (10:22→21:14)
[2022-02-01] MEDS: Enoxaparin Sodium 40 MG/0.4 ML SYRINGE SC SCH (10:22)
[2022-02-01] MEDS: Cyanocobalamin (Vitamin B-12) 1,000 MCG TAB PO SCH (10:22)
[2022-02-01] MEDS: Oxybutynin 5 MG TAB PO SCH ×2 (10:23→21:13)
[2022-02-01] MEDS: predniSONE 20 MG TAB PO SCH (10:23)
[2022-02-01] MEDS: FLUoxetine HCl 20 MG CAP PO SCH (10:23)
[2022-02-01] MEDS: Cefepime 1 GM in Sodium Chloride 0.9% 100 ML IVPB SCH ×3 (10:36→21:13)
[2022-02-01] MEDS ORDERED: Sodium Chloride 0.9% 1,000 ML IV SCH (10:45)
[2022-02-01] MEDS: Benzonatate 100 MG CAP PO PRN (11:57)
[2022-02-01] MEDS: Nicotine 14 MG PATCH TD SCH (21:13)
[2022-02-01] MEDS: Benztropine 1 MG TAB PO SCH (21:13)
[2022-02-01] MEDS: OLANZapine 5 MG TAB PO SCH (21:13)
[2022-02-01] MEDS: Atorvastatin Calcium 20 MG TAB PO SCH (21:14)
[2022-02-01] MEDS: Pramipexole Di-HCl 0.25 MG TAB PO SCH (21:14)
[2022-02-01] MEDS: traZODone HCl 150 MG TAB PO SCH (21:14)
[2022-02-01] MEDS: ZALEPLON 5 MG PO SCH (21:47)
[2022-02-02] MEDS: HYDROcodone/Acetaminophen 10/325 mg Tablet PO PRN ×4 (05:06→23:57)
[2022-02-02 05:28] LABS: #Basophils 0.1 thou/uL (0.0-0.2); #Lymphocytes 2.3 thou/uL (1.20-3.40); #Monocytes 1.1 thou/uL (0.11-0.59); #Neutrophils 7.7 thou/uL (1.40-6.50); %Basophils 0.5 % (0.0-1.0); %Eosinophils 0.4 % (0.0-10.0); %Lymphocytes 20.3 % (21.0-51.0); %Monocytes 9.4 % (0.0-10.0); %Neutrophils 69.4 % (42.0-75.0); Hemoglobin 11.4 g/dL (12.0-16.0); Mean Corpuscular Hemoglobin 32.7 pg (27.0-31.0); Mean Platelet Volume 6.1 fL (7.4-10.4); Platelet Count 283 thou/uL (130-400); RBC Distribution Width 11.7 % (11.5-14.5); Red Blood Cell (RBC) Count 3.49 mill/uL (4.20-5.40); White Blood Cell (WBC) Count 11.1 thou/uL (4.8-10.8)
[2022-02-02 06:17] LABS: Anion Gap 13 mmol/L (10-20); BUN (Urea Nitrogen) 19 mg/dL (9.8-20.1); Calc. Creatinine Clearance 62 mL/min (70-130); Calcium 9.5 mg/dL (7.8-10.44); Carbon Dioxide 31 mmol/L (22-29); Chloride 100 mmol/L (98-107); Estimated GFR 96; Glucose 89 mg/dL (70-105); Potassium 3.9 mmol/L (3.5-5.1); Sodium 140 mmol/L (136-145)
[2022-02-02] MEDS: Mometasone/Formoterol 200/5 60 PUFF INH SCH ×2 (08:03→18:59)
[2022-02-02] MEDS: Aspirin 81 mg Enteric Coated Tablet PO SCH (08:47)
[2022-02-02] MEDS: Cefepime 1 GM in Sodium Chloride 0.9% 100 ML IVPB SCH ×2 (08:47→20:14)
[2022-02-02] MEDS: busPIRone HCl 10 MG TAB PO SCH ×2 (08:47→20:15)
[2022-02-02] MEDS: FLUoxetine HCl 20 MG CAP PO SCH (08:48)
[2022-02-02] MEDS: Oxybutynin 5 MG TAB PO SCH ×2 (08:48→20:16)
[2022-02-02] MEDS: Enoxaparin Sodium 40 MG/0.4 ML SYRINGE SC SCH (08:48)
[2022-02-02] MEDS: Cyanocobalamin (Vitamin B-12) 1,000 MCG TAB PO SCH (08:48)
[2022-02-02] MEDS: Famotidine 20 MG TAB PO SCH ×2 (08:48→20:15)
[2022-02-02] MEDS: predniSONE 20 MG TAB PO SCH (08:49)
[2022-02-02] MEDS: ZALEPLON 5 MG PO SCH (20:09)
[2022-02-02] MEDS: Senokot S 8.6-50 MG TAB PO PRN (20:14)
[2022-02-02] MEDS: Benztropine 1 MG TAB PO SCH (20:15)
[2022-02-02] MEDS: Atorvastatin Calcium 20 MG TAB PO SCH (20:15)
[2022-02-02] MEDS: traZODone HCl 150 MG TAB PO SCH (20:16)
[2022-02-02] MEDS: Nicotine 14 MG PATCH TD SCH (20:16)
[2022-02-02] MEDS: OLANZapine 5 MG TAB PO SCH (20:16)
[2022-02-02] MEDS: Pramipexole Di-HCl 0.25 MG TAB PO SCH (20:16)
[2022-02-03 05:13] LABS: #Eosinphils 0.1 thou/uL (0.0-0.7); #Lymphocytes 2.7 thou/uL (1.20-3.40); #Monocytes 1.1 thou/uL (0.11-0.59); %Basophils 0.3 % (0.0-1.0); %Eosinophils 0.7 % (0.0-10.0); %Lymphocytes 22.7 % (21.0-51.0); %Monocytes 9.4 % (0.0-10.0); %Neutrophils 66.8 % (42.0-75.0); Hemoglobin 11.5 g/dL (12.0-16.0); Mean Corpuscular HGB CONC 32.8 g/dL (32.0-36.0); Mean Corpuscular Hemoglobin 32.4 pg (27.0-31.0); Mean Corpuscular Volume 98.9 fL (78.0-98.0); Mean Platelet Volume 5.9 fL (7.4-10.4); Platelet Count 288 thou/uL (130-400); RBC Distribution Width 11.6 % (11.5-14.5); Red Blood Cell (RBC) Count 3.54 mill/uL (4.20-5.40); White Blood Cell (WBC) Count 11.9 thou/uL (4.8-10.8)
[2022-02-03 05:40] LABS: Anion Gap 13 mmol/L (10-20); BUN (Urea Nitrogen) 19 mg/dL (9.8-20.1); Calc. Creatinine Clearance 63 mL/min (70-130); Calcium 9.4 mg/dL (7.8-10.44); Carbon Dioxide 30 mmol/L (22-29); Chloride 97 mmol/L (98-107); Estimated GFR 98; Glucose 95 mg/dL (70-105); Magnesium 2.1 mg/dL (1.6-2.6); Potassium 3.7 mmol/L (3.5-5.1); Sodium 136 mmol/L (136-145)
[2022-02-03] MEDS ORDERED: Doxycycline 100 MG CAP PO SCH (06:00)
[2022-02-03] MEDS: Mometasone/Formoterol 200/5 60 PUFF INH SCH (06:11)
[2022-02-03] MEDS: HYDROcodone/Acetaminophen 10/325 mg Tablet PO PRN (07:42)
[2022-02-03] MEDS: Enoxaparin Sodium 40 MG/0.4 ML SYRINGE SC SCH (07:51)
[2022-02-03] MEDS: busPIRone HCl 10 MG TAB PO SCH (07:51)
[2022-02-03] MEDS: Aspirin 81 mg Enteric Coated Tablet PO SCH (07:51)
[2022-02-03] MEDS: Cyanocobalamin (Vitamin B-12) 1,000 MCG TAB PO SCH (07:52)
[2022-02-03] MEDS: predniSONE 20 MG TAB PO SCH (07:52)
[2022-02-03] MEDS: Famotidine 20 MG TAB PO SCH (07:53)
[2022-02-03] MEDS: FLUoxetine HCl 20 MG CAP PO SCH (07:53)
[2022-02-03] MEDS: Oxybutynin 5 MG TAB PO SCH (07:53)
[2022-02-03 08:04] VITALS: BP 99/61; TEMP 97.4
== END 2022-02-03 11:53 | disposition home or self-care (01) | DRG 205 ==
LOC: T4-A 15:48 → 2SW 18:17 → OBSVTOIN 01-31 17:48
PROVIDERS: ADMIT Family Medicine; ATTEND Family Medicine
DX: J70.4 Drug-induced interstitial lung disorders, unspecified (principal); J96.21 Acute and chronic respiratory failure with hypoxia; J44.1 Chronic obstructive pulmonary disease with (acute) exacerbation; Z20.822 Contact with and (suspected) exposure to COVID-19; E78.5 Hyperlipidemia, unspecified; M10.9 Gout, unspecified; M19.90 Unspecified osteoarthritis, unspecified site; F31.9 Bipolar disorder, unspecified; F41.9 Anxiety disorder, unspecified; F17.210 Nicotine dependence, cigarettes, uncomplicated; F14.10 Cocaine abuse, uncomplicated; G47.00 Insomnia, unspecified; Z88.1 Allergy status to other antibiotic agents; Z99.81 Dependence on supplemental oxygen; Z79.51 Long term (current) use of inhaled steroids; Z79.899 Other long term (current) drug therapy; Z90.710 Acquired absence of both cervix and uterus; R32 Unspecified urinary incontinence; T50.995A Adverse effect of other drugs, medicaments and biological substances, initial encounter
CPT/HCPCS: 36415; 78452; 80048; 80061; 80076; 80306; 83036; 83735; 84145; 84443; 84484; 85025; 85379; 93005; 93010; 93017; 93306; 94640; 96372; 96374; A9500; G0378; J0692; J1650; J1956; J2785; J3490; J7050; J7512; J7620

== ENCOUNTER 2022-03-22 11:13 | Inpatient (IN) | payer MEDICARE, MEDICAID ==
[2022-03-22] MEDS ORDERED: Ipratropium Bromide 2.5 ml Neb ONE ×2 (12:01→13:24)
[2022-03-22] MEDS ORDERED: Albuterol Sulfate 2.5 mg/3 ml Neb ONE ×2 (12:01→13:24)
[2022-03-22 12:23] LABS: Actual Bicarbonate (HCO3a) 24.1 mEq/L (22-28); Analyzer IN Cardio ER; Base Excess (BEa) 0.5 mEq/L (-2.0 to +3.0); CO2 Tension 34.8 mmHg (35.0-45.0); Calcium, Ionized (arterial) 1.12 mmol/L (1.12-1.30); Carboxyhemoglobin (COHb) 0.1 gm% (0.0-3.0); Potassium - ABG Lab 3.67 mmol/L (3.70-5.30); pH, Arterial 7.46 (7.35-7.45)
[2022-03-22 12:34] LABS: #Eosinphils 0.3 thou/uL (0.0-0.7); #Lymphocytes 1.5 thou/uL (1.20-3.40); #Neutrophils 8.6 thou/uL (1.40-6.50); %Basophils 0.3 % (0.0-1.0); %Eosinophils 2.9 % (0.0-10.0); %Lymphocytes 12.8 % (21.0-51.0); %Monocytes 8.4 % (0.0-10.0); %Neutrophils 75.7 % (42.0-75.0); Hemoglobin 10.9 g/dL (12.0-16.0); Mean Corpuscular Hemoglobin 31.2 pg (27.0-31.0); Mean Corpuscular Volume 94.6 fl (78.0-98.0); Mean Platelet Volume 6.8 fL (7.4-10.4); Platelet Count 361 thou/uL (130-400); RBC Distribution Width 11.5 % (11.5-14.5); Red Blood Cell (RBC) Count 3.48 mill/uL (4.20-5.40); White Blood Cell (WBC) Count 11.4 thou/uL (4.8-10.8)
[2022-03-22 12:35] LABS: Puncture Site RRA
[2022-03-22] MEDS ORDERED: methylPREDNISolone Sod Succ/PF 125 MG/2 ML VIAL ONE (12:45)
[2022-03-22] MEDS ORDERED: cefTRIAXone\\ROCEPHIN 1 GM VIAL ONE ×2 (12:45→13:38)
[2022-03-22] MEDS ORDERED: Lidocaine 1% MPF 2 ML VIAL ONE (13:04)
[2022-03-22 13:06] LABS: ALT (SGPT) 17 U/L (8-55); AST (SGOT) 20 U/L (5-34); Albumin 3.6 g/dL (3.5-5.0); Alkaline Phosphatase 114 U/L (40-110); Anion Gap 14 mmol/L (10-20); BUN (Urea Nitrogen) 13 mg/dL (9.8-20.1); Bilirubin, Total 0.3 mg/dL (0.2-1.2); Calc. Creatinine Clearance 0 mL/min (70-130); Calcium 9.6 mg/dL (7.8-10.44); Carbon Dioxide 26 mmol/L (22-29); Chloride 101 mmol/L (98-107); Estimated GFR 102; Globulin 3.5 g/dL (2.4-3.5); Glucose 131 mg/dL (70-105); Lipase 16 U/L (8-78); Potassium 3.8 mmol/L (3.5-5.1); Protein, Total 7.1 g/dL (6.0-8.3); Sodium 137 mmol/L (136-145)
[2022-03-22 14:07] LABS: SARS-CoV-2 NAA Rapid Test Not Detected (NotDetected)
[2022-03-22] MEDS ORDERED: Acetaminophen 325 MG TAB PO PRN (15:12)
[2022-03-22] MEDS ORDERED: Ondansetron PF 4 MG/2 ML Vial IVP PRN (15:12)
[2022-03-22] MEDS: Doxycycline 100 MG CAP PO SCH (16:22)
[2022-03-22 16:43] VITALS: BMI 18.1
[2022-03-22 17:44] LABS: Bacteria/HPF None Seen HPF (None Seen); Bilirubin Negative (Negative); Blood, Urine Negative (Negative); Clarity Clear (Clear); Glucose, Urine (Dipstick) 300 mg/dL (Negative); Ketone, Urine Negative (Negative); Leukocyte Negative Leu/uL (Negative); Nitrite Negative (Negative); Protein, Urine (Dipstick) Negative (Neg-Trace); RBC/HPF 0-3 HPF (0-3); Specific Gravity, Urine 1.008 (1.002-1.036); Squamous Epithelial 0-3 HPF (0-3); Urobilinogen Normal mg/dL (Less than 2); WBC/HPF 0-3 HPF (0-3); pH, Urine 5.5 (5.0-9.0)
[2022-03-22 17:47] LABS: Urine Culture Reflex No No
[2022-03-22 17:50] LABS: Amphetamine Not Detected (NotDetected); Barbiturates Screen Not Detected (NotDetected); Benzodiazepine Screen Not Detected (NotDetected); Cocaine Metabolite Screen Detected (NotDetected); Methadone Not Detected (NotDetected); Methamphetamine Not Detected (NotDetected); Opiate Screen Not Detected (NotDetected); Oxycodone Screen Not Detected (NotDetected); Phencyclidine (PCP) Not Detected (NotDetected); THC/Cannabinoid Screen Not Detected (NotDetected); Tricyclic Screen Not Detected (NotDetected)
[2022-03-22] MEDS: Nicotine 14 MG PATCH TOP SCH (17:52)
[2022-03-22] MEDS: Budesonide 0.5 MG/2 ML NEB NEB SCH (19:17)
[2022-03-22] MEDS: Pramipexole Di-HCl 0.25 MG TAB PO SCH (21:50)
[2022-03-22] MEDS: Benztropine 1 MG TAB PO SCH (21:50)
[2022-03-22] MEDS: Atorvastatin Calcium 20 MG TAB PO SCH (21:52)
[2022-03-22] MEDS: OLANZapine 5 MG TAB PO SCH (21:52)
[2022-03-22] MEDS: CeleCOXIB 100 MG CAP PO SCH (21:52)
[2022-03-22] MEDS: busPIRone HCl 10 MG TAB PO SCH (21:52)
[2022-03-22] MEDS: traZODone HCl 150 MG TAB PO SCH (21:53)
[2022-03-22] MEDS: Oxybutynin 5 MG TAB PO SCH (21:53)
[2022-03-22] MEDS: Benzonatate 100 MG CAP PO PRN (22:59)
[2022-03-22] MEDS: HYDROcodone/Acetaminophen 10/325 mg Tablet PO PRN (23:00)
[2022-03-22] MEDS ORDERED: ZALEPLON 5 MG PO SCH (23:15)
[2022-03-23 06:14] LABS: #Lymphocytes 0.9 thou/uL (1.20-3.40); #Neutrophils 12.1 thou/uL (1.40-6.50); %Basophils 0.1 % (0.0-1.0); %Eosinophils 0.1 % (0.0-10.0); %Lymphocytes 6.5 % (21.0-51.0); %Monocytes 7.1 % (0.0-10.0); %Neutrophils 86.3 % (42.0-75.0); Hemoglobin 9.6 g/dL (12.0-16.0); Mean Corpuscular HGB CONC 32.2 g/dL (32.0-36.0); Mean Corpuscular Hemoglobin 31.1 pg (27.0-31.0); Mean Corpuscular Volume 96.7 fl (78.0-98.0); Mean Platelet Volume 6.6 fL (7.4-10.4); Platelet Count 355 thou/uL (130-400); RBC Distribution Width 11.5 % (11.5-14.5); Red Blood Cell (RBC) Count 3.08 mill/uL (4.20-5.40)
[2022-03-23 06:42] LABS: ALT (SGPT) 22 U/L (8-55); AST (SGOT) 23 U/L (5-34); Albumin 3.3 g/dL (3.5-5.0); Alkaline Phosphatase 107 U/L (40-110); Anion Gap 13 mmol/L (10-20); BUN (Urea Nitrogen) 14 mg/dL (9.8-20.1); Bilirubin, Total 0.2 mg/dL (0.2-1.2); Calc. Creatinine Clearance 77 mL/min (70-130); Calcium 9.4 mg/dL (7.8-10.44); Carbon Dioxide 23 mmol/L (22-29); Chloride 107 mmol/L (98-107); Estimated GFR 104; Globulin 3.2 g/dL (2.4-3.5); Glucose 128 mg/dL (70-105); Potassium 4.3 mmol/L (3.5-5.1); Protein, Total 6.5 g/dL (6.0-8.3); Sodium 139 mmol/L (136-145)
[2022-03-23] MEDS: Budesonide 0.5 MG/2 ML NEB NEB SCH ×2 (06:55→18:50)
[2022-03-23] MEDS: CeleCOXIB 100 MG CAP PO SCH ×2 (08:58→20:25)
[2022-03-23] MEDS: FLUoxetine HCl 20 MG CAP PO SCH (08:59)
[2022-03-23] MEDS: Oxybutynin 5 MG TAB PO SCH ×2 (08:59→20:24)
[2022-03-23] MEDS: Enoxaparin Sodium 40 MG/0.4 ML SYRINGE SC SCH (08:59)
[2022-03-23] MEDS: predniSONE 20 MG TAB PO SCH (08:59)
[2022-03-23] MEDS: busPIRone HCl 10 MG TAB PO SCH ×2 (08:59→20:24)
[2022-03-23] MEDS ORDERED: FLU VACC QS2022-23(6MOS UP)/PF 60 MCG/0.5 ML SYRINGE IM ONE (09:00)
[2022-03-23] MEDS: Benzonatate 100 MG CAP PO PRN ×3 (09:01→20:23)
[2022-03-23] MEDS: HYDROcodone/Acetaminophen 10/325 mg Tablet PO PRN ×3 (09:01→21:39)
[2022-03-23] MEDS: cefTRIAXone\\ROCEPHIN 2 GM in Sodium Chloride 0.9% 100 ML IVPB SCH (13:56)
[2022-03-23] MEDS: Doxycycline 100 MG CAP PO SCH (13:56)
[2022-03-23] MEDS: Nicotine 14 MG PATCH TOP SCH (16:47)
[2022-03-23 19:05] LABS: Legionella Urinary Ag Negative (Negative); Strep pneumo Urine Ag NEGATIVE (NEGATIVE)
[2022-03-23] MEDS: OLANZapine 5 MG TAB PO SCH (20:24)
[2022-03-23] MEDS: Pramipexole Di-HCl 0.25 MG TAB PO SCH (20:24)
[2022-03-23] MEDS: Benztropine 1 MG TAB PO SCH (20:24)
[2022-03-23] MEDS: Atorvastatin Calcium 20 MG TAB PO SCH (20:25)
[2022-03-23] MEDS: traZODone HCl 150 MG TAB PO SCH (20:25)
[2022-03-23] MEDS: tiZANidine HCl 4 MG TAB PO PRN (20:28)
[2022-03-23] MEDS ORDERED: ZALEPLON PO SCH (21:00)
[2022-03-23] MEDS ORDERED: Zolpidem Tartrate 5 MG TAB PO SCH (21:00)
[2022-03-23] MEDS: ZALEPLON 5 MG PO SCH (21:33)
[2022-03-24] MEDS: Budesonide 0.5 MG/2 ML NEB NEB SCH ×2 (06:47→19:13)
[2022-03-24] MEDS: busPIRone HCl 10 MG TAB PO SCH ×2 (08:53→20:43)
[2022-03-24] MEDS: CeleCOXIB 100 MG CAP PO SCH ×2 (08:54→20:43)
[2022-03-24] MEDS: predniSONE 20 MG TAB PO SCH (08:54)
[2022-03-24] MEDS: Oxybutynin 5 MG TAB PO SCH ×2 (08:54→20:43)
[2022-03-24] MEDS: FLUoxetine HCl 20 MG CAP PO SCH (08:54)
[2022-03-24] MEDS: Enoxaparin Sodium 40 MG/0.4 ML SYRINGE SC SCH (08:54)
[2022-03-24] MEDS: HYDROcodone/Acetaminophen 10/325 mg Tablet PO PRN ×3 (08:58→20:44)
[2022-03-24] MEDS: Benzonatate 100 MG CAP PO PRN ×3 (08:59→20:44)
[2022-03-24] MEDS: cefTRIAXone\\ROCEPHIN 2 GM in Sodium Chloride 0.9% 100 ML IVPB SCH (14:29)
[2022-03-24] MEDS: Doxycycline 100 MG CAP PO SCH (15:45)
[2022-03-24] MEDS: Nicotine 14 MG PATCH TOP SCH (17:37)
[2022-03-24] MEDS: tiZANidine HCl 4 MG TAB PO PRN (20:42)
[2022-03-24] MEDS: Pramipexole Di-HCl 0.25 MG TAB PO SCH (20:42)
[2022-03-24] MEDS: Benztropine 1 MG TAB PO SCH (20:42)
[2022-03-24] MEDS: OLANZapine 5 MG TAB PO SCH (20:43)
[2022-03-24] MEDS: Atorvastatin Calcium 20 MG TAB PO SCH (20:44)
[2022-03-24] MEDS: traZODone HCl 150 MG TAB PO SCH (20:44)
[2022-03-24] MEDS: ZALEPLON 5 MG PO SCH (21:10)
[2022-03-25] MEDS: Budesonide 0.5 MG/2 ML NEB NEB SCH ×2 (07:25→18:47)
[2022-03-25] MEDS: predniSONE 20 MG TAB PO SCH (08:59)
[2022-03-25] MEDS: CeleCOXIB 100 MG CAP PO SCH ×2 (08:59→21:10)
[2022-03-25] MEDS: Oxybutynin 5 MG TAB PO SCH ×2 (08:59→21:11)
[2022-03-25] MEDS: busPIRone HCl 10 MG TAB PO SCH ×2 (08:59→21:09)
[2022-03-25] MEDS: Enoxaparin Sodium 40 MG/0.4 ML SYRINGE SC SCH (09:00)
[2022-03-25] MEDS: FLUoxetine HCl 20 MG CAP PO SCH (09:00)
[2022-03-25] MEDS: HYDROcodone/Acetaminophen 10/325 mg Tablet PO PRN ×3 (09:02→21:11)
[2022-03-25] MEDS: Benzonatate 100 MG CAP PO PRN ×3 (09:02→21:10)
[2022-03-25] MEDS: Senokot S 8.6-50 MG TAB PO PRN ×2 (09:16→21:34)
[2022-03-25] MEDS: cefTRIAXone\\ROCEPHIN 2 GM in Sodium Chloride 0.9% 100 ML IVPB SCH (13:04)
[2022-03-25] MEDS: Nicotine 14 MG PATCH TOP SCH (16:45)
[2022-03-25] MEDS: Benztropine 1 MG TAB PO SCH (21:10)
[2022-03-25] MEDS: Pramipexole Di-HCl 0.25 MG TAB PO SCH (21:10)
[2022-03-25] MEDS: OLANZapine 5 MG TAB PO SCH (21:10)
[2022-03-25] MEDS: tiZANidine HCl 4 MG TAB PO PRN (21:11)
[2022-03-25] MEDS: Atorvastatin Calcium 20 MG TAB PO SCH (21:11)
[2022-03-25] MEDS: traZODone HCl 150 MG TAB PO SCH (21:11)
[2022-03-25] MEDS: ZALEPLON 5 MG PO SCH (21:34)
[2022-03-26] MEDS: Budesonide 0.5 MG/2 ML NEB NEB SCH ×2 (07:09→18:30)
[2022-03-26 08:08] LABS: #Eosinphils 0.2 thou/uL (0.0-0.7); #Lymphocytes 2.6 thou/uL (1.20-3.40); #Monocytes 0.7 thou/uL (0.11-0.59); #Neutrophils 5.5 thou/uL (1.40-6.50); %Basophils 0.4 % (0.0-1.0); %Eosinophils 1.9 % (0.0-10.0); %Lymphocytes 28.7 % (21.0-51.0); %Monocytes 7.7 % (0.0-10.0); %Neutrophils 61.3 % (42.0-75.0); Hemoglobin 10.8 g/dL (12.0-16.0); Mean Corpuscular HGB CONC 32.4 g/dL (32.0-36.0); Mean Corpuscular Hemoglobin 31.7 pg (27.0-31.0); Mean Corpuscular Volume 97.9 fl (78.0-98.0); Mean Platelet Volume 5.9 fL (7.4-10.4); Platelet Count 437 thou/uL (130-400); RBC Distribution Width 11.5 % (11.5-14.5); Red Blood Cell (RBC) Count 3.39 mill/uL (4.20-5.40); White Blood Cell (WBC) Count 8.9 thou/uL (4.8-10.8)
[2022-03-26 08:24] LABS: Anion Gap 10 mmol/L (10-20); BUN (Urea Nitrogen) 21 mg/dL (9.8-20.1); Calc. Creatinine Clearance 65 mL/min (70-130); Calcium 9.5 mg/dL (7.8-10.44); Carbon Dioxide 32 mmol/L (22-29); Chloride 98 mmol/L (98-107); Estimated GFR 96; Glucose 88 mg/dL (70-105); Potassium 3.7 mmol/L (3.5-5.1); Sodium 136 mmol/L (136-145)
[2022-03-26] MEDS: HYDROcodone/Acetaminophen 10/325 mg Tablet PO PRN ×3 (08:37→21:10)
[2022-03-26] MEDS: Oxybutynin 5 MG TAB PO SCH ×2 (08:38→21:11)
[2022-03-26] MEDS: Benzonatate 100 MG CAP PO PRN ×3 (08:38→23:37)
[2022-03-26] MEDS: predniSONE 20 MG TAB PO SCH (08:38)
[2022-03-26] MEDS: FLUoxetine HCl 20 MG CAP PO SCH (08:38)
[2022-03-26] MEDS: Senokot S 8.6-50 MG TAB PO PRN (08:38)
[2022-03-26] MEDS: CeleCOXIB 100 MG CAP PO SCH ×2 (08:38→21:12)
[2022-03-26] MEDS: Enoxaparin Sodium 40 MG/0.4 ML SYRINGE SC SCH (08:39)
[2022-03-26] MEDS: busPIRone HCl 10 MG TAB PO SCH ×2 (08:39→21:12)
[2022-03-26] MEDS ORDERED: Cepastat Lozenges 1 LOZ PO PRN (10:36)
[2022-03-26] MEDS: cefTRIAXone\\ROCEPHIN 2 GM in Sodium Chloride 0.9% 100 ML IVPB SCH (12:41)
[2022-03-26] MEDS: Nicotine 14 MG PATCH TOP SCH (15:51)
[2022-03-26] MEDS: Pramipexole Di-HCl 0.25 MG TAB PO SCH (21:09)
[2022-03-26] MEDS: Benztropine 1 MG TAB PO SCH (21:09)
[2022-03-26] MEDS: Doxycycline 100 MG CAP PO SCH (21:10)
[2022-03-26] MEDS: traZODone HCl 150 MG TAB PO SCH (21:11)
[2022-03-26] MEDS: guaiFENesin/DM ER PO SCH (21:12)
[2022-03-26] MEDS: Atorvastatin Calcium 20 MG TAB PO SCH (21:13)
[2022-03-26] MEDS: OLANZapine 5 MG TAB PO SCH (21:13)
[2022-03-26] MEDS: ZALEPLON 5 MG PO SCH (21:55)
[2022-03-27] MEDS: Budesonide 0.5 MG/2 ML NEB NEB SCH ×2 (07:13→18:42)
[2022-03-27] MEDS: Enoxaparin Sodium 40 MG/0.4 ML SYRINGE SC SCH (08:12)
[2022-03-27] MEDS: Doxycycline 100 MG CAP PO SCH ×2 (08:12→21:11)
[2022-03-27] MEDS: busPIRone HCl 10 MG TAB PO SCH ×2 (08:12→21:14)
[2022-03-27] MEDS: predniSONE 20 MG TAB PO SCH (08:13)
[2022-03-27] MEDS: CeleCOXIB 100 MG CAP PO SCH ×2 (08:14→21:12)
[2022-03-27] MEDS: Oxybutynin 5 MG TAB PO SCH ×2 (08:15→21:11)
[2022-03-27] MEDS: guaiFENesin/DM ER PO SCH ×2 (08:15→21:14)
[2022-03-27] MEDS: FLUoxetine HCl 20 MG CAP PO SCH (08:15)
[2022-03-27] MEDS: Benzonatate 100 MG CAP PO PRN ×3 (08:17→23:11)
[2022-03-27] MEDS: HYDROcodone/Acetaminophen 10/325 mg Tablet PO PRN ×3 (08:17→21:13)
[2022-03-27] MEDS: cefTRIAXone\\ROCEPHIN 2 GM in Sodium Chloride 0.9% 100 ML IVPB SCH (12:11)
[2022-03-27] MEDS: Nicotine 14 MG PATCH TOP SCH (17:17)
[2022-03-27] MEDS: Pramipexole Di-HCl 0.25 MG TAB PO SCH (21:11)
[2022-03-27] MEDS: traZODone HCl 150 MG TAB PO SCH (21:12)
[2022-03-27] MEDS: Atorvastatin Calcium 20 MG TAB PO SCH (21:12)
[2022-03-27] MEDS: OLANZapine 5 MG TAB PO SCH (21:14)
[2022-03-27] MEDS: ZALEPLON 5 MG PO SCH (21:14)
[2022-03-27] MEDS: Benztropine 1 MG TAB PO SCH (21:14)
[2022-03-28] MEDS: HYDROcodone/Acetaminophen 10/325 mg Tablet PO PRN ×3 (03:50→17:48)
[2022-03-28] MEDS: Budesonide 0.5 MG/2 ML NEB NEB SCH ×2 (06:58→18:13)
[2022-03-28] MEDS: CeleCOXIB 100 MG CAP PO SCH ×2 (08:18→21:24)
[2022-03-28] MEDS: Benzonatate 100 MG CAP PO PRN ×2 (08:19→17:48)
[2022-03-28] MEDS: guaiFENesin/DM ER PO SCH ×2 (08:19→21:24)
[2022-03-28] MEDS: Oxybutynin 5 MG TAB PO SCH ×2 (08:19→21:25)
[2022-03-28] MEDS: Doxycycline 100 MG CAP PO SCH (08:19)
[2022-03-28] MEDS: FLUoxetine HCl 20 MG CAP PO SCH (08:20)
[2022-03-28] MEDS: Enoxaparin Sodium 40 MG/0.4 ML SYRINGE SC SCH (08:20)
[2022-03-28] MEDS: busPIRone HCl 10 MG TAB PO SCH ×2 (08:22→21:25)
[2022-03-28] MEDS ORDERED: predniSONE 20 MG TAB PO SCH (12:15)
[2022-03-28] MEDS: Nicotine 14 MG PATCH TOP SCH (16:51)
[2022-03-28] MEDS: traZODone HCl 150 MG TAB PO SCH (21:24)
[2022-03-28] MEDS: Benztropine 1 MG TAB PO SCH (21:24)
[2022-03-28] MEDS: Pramipexole Di-HCl 0.25 MG TAB PO SCH (21:24)
[2022-03-28] MEDS: Cefdinir 300 MG CAP PO SCH (21:25)
[2022-03-28] MEDS: Atorvastatin Calcium 20 MG TAB PO SCH (21:25)
[2022-03-28] MEDS: ZALEPLON 5 MG PO SCH (21:25)
[2022-03-28] MEDS: OLANZapine 5 MG TAB PO SCH (21:25)
[2022-03-29] MEDS: HYDROcodone/Acetaminophen 10/325 mg Tablet PO PRN ×4 (00:01→20:33)
[2022-03-29] MEDS: Budesonide 0.5 MG/2 ML NEB NEB SCH ×2 (06:47→18:58)
[2022-03-29] MEDS: Enoxaparin Sodium 40 MG/0.4 ML SYRINGE SC SCH (08:14)
[2022-03-29] MEDS: CeleCOXIB 100 MG CAP PO SCH ×2 (08:15→20:23)
[2022-03-29] MEDS: Cefdinir 300 MG CAP PO SCH ×2 (08:15→20:23)
[2022-03-29] MEDS: FLUoxetine HCl 20 MG CAP PO SCH (08:16)
[2022-03-29] MEDS: Oxybutynin 5 MG TAB PO SCH ×2 (08:16→20:24)
[2022-03-29] MEDS: busPIRone HCl 10 MG TAB PO SCH ×2 (08:16→20:23)
[2022-03-29] MEDS: predniSONE 20 MG TAB PO SCH (08:18)
[2022-03-29] MEDS: guaiFENesin/DM ER PO SCH ×2 (08:20→20:24)
[2022-03-29] MEDS: Nicotine 14 MG PATCH TOP SCH (16:33)
[2022-03-29] MEDS: Atorvastatin Calcium 20 MG TAB PO SCH (20:23)
[2022-03-29] MEDS: Benztropine 1 MG TAB PO SCH (20:23)
[2022-03-29] MEDS: OLANZapine 5 MG TAB PO SCH (20:24)
[2022-03-29] MEDS: Pramipexole Di-HCl 0.25 MG TAB PO SCH (20:25)
[2022-03-29] MEDS: traZODone HCl 150 MG TAB PO SCH (20:25)
[2022-03-29] MEDS: Benzonatate 100 MG CAP PO PRN (20:33)
[2022-03-29] MEDS: ZALEPLON 5 MG PO SCH (21:08)
[2022-03-30] MEDS: Budesonide 0.5 MG/2 ML NEB NEB SCH ×2 (07:09→18:53)
[2022-03-30] MEDS: Enoxaparin Sodium 40 MG/0.4 ML SYRINGE SC SCH (08:02)
[2022-03-30] MEDS: CeleCOXIB 100 MG CAP PO SCH ×2 (08:03→19:51)
[2022-03-30] MEDS: predniSONE 20 MG TAB PO SCH (08:03)
[2022-03-30] MEDS: guaiFENesin/DM ER PO SCH ×2 (08:03→19:54)
[2022-03-30] MEDS: FLUoxetine HCl 20 MG CAP PO SCH (08:03)
[2022-03-30] MEDS: busPIRone HCl 10 MG TAB PO SCH ×2 (08:04→19:53)
[2022-03-30] MEDS: Cefdinir 300 MG CAP PO SCH ×2 (08:05→19:52)
[2022-03-30] MEDS: Oxybutynin 5 MG TAB PO SCH ×2 (08:05→19:52)
[2022-03-30] MEDS: Senokot S 8.6-50 MG TAB PO PRN (08:07)
[2022-03-30] MEDS: HYDROcodone/Acetaminophen 10/325 mg Tablet PO PRN ×2 (08:09→18:33)
[2022-03-30] MEDS: Nicotine 14 MG PATCH TOP SCH (16:52)
[2022-03-30] MEDS: Pramipexole Di-HCl 0.25 MG TAB PO SCH (19:50)
[2022-03-30] MEDS: Benztropine 1 MG TAB PO SCH (19:52)
[2022-03-30] MEDS: traZODone HCl 150 MG TAB PO SCH (19:53)
[2022-03-30] MEDS: OLANZapine 5 MG TAB PO SCH (19:53)
[2022-03-30] MEDS: Atorvastatin Calcium 20 MG TAB PO SCH (19:54)
[2022-03-30] MEDS: Benzonatate 100 MG CAP PO PRN (19:54)
[2022-03-30] MEDS: ZALEPLON 5 MG PO SCH (19:54)
[2022-03-31] MEDS: Budesonide 0.5 MG/2 ML NEB NEB SCH ×2 (07:22→18:20)
[2022-03-31] MEDS: CeleCOXIB 100 MG CAP PO SCH ×2 (08:58→21:33)
[2022-03-31] MEDS: Cefdinir 300 MG CAP PO SCH ×2 (08:58→21:34)
[2022-03-31] MEDS: Oxybutynin 5 MG TAB PO SCH ×2 (09:00→21:33)
[2022-03-31] MEDS: FLUoxetine HCl 20 MG CAP PO SCH (09:00)
[2022-03-31] MEDS: Benzonatate 100 MG CAP PO PRN ×2 (09:01→21:44)
[2022-03-31] MEDS: busPIRone HCl 10 MG TAB PO SCH ×2 (09:01→21:31)
[2022-03-31] MEDS: guaiFENesin/DM ER PO SCH ×2 (09:01→21:34)
[2022-03-31] MEDS: predniSONE 20 MG TAB PO SCH (09:02)
[2022-03-31] MEDS: Enoxaparin Sodium 40 MG/0.4 ML SYRINGE SC SCH (09:02)
[2022-03-31] MEDS: HYDROcodone/Acetaminophen 10/325 mg Tablet PO PRN ×3 (09:12→23:15)
[2022-03-31 10:40] LABS: #Basophils 0.1 thou/uL (0.0-0.2); #Eosinphils 0.6 thou/uL (0.0-0.7); #Lymphocytes 3.1 thou/uL (1.20-3.40); #Monocytes 1.1 thou/uL (0.11-0.59); #Neutrophils 6.8 thou/uL (1.40-6.50); %Basophils 0.5 % (0.0-1.0); %Eosinophils 5.5 % (0.0-10.0); %Lymphocytes 26.2 % (21.0-51.0); %Monocytes 9.6 % (0.0-10.0); %Neutrophils 58.3 % (42.0-75.0); Hemoglobin 11.7 g/dL (12.0-16.0); Mean Corpuscular HGB CONC 31.9 g/dL (32.0-36.0); Mean Corpuscular Hemoglobin 31.1 pg (27.0-31.0); Mean Corpuscular Volume 97.7 fl (78.0-98.0); Platelet Count 487 10x3/uL (130-400); RBC Distribution Width 12.2 % (11.5-14.5); Red Blood Cell (RBC) Count 3.75 mill/uL (4.20-5.40); White Blood Cell (WBC) Count 11.7 10x3/uL (4.8-10.8)
[2022-03-31 10:58] LABS: Anion Gap 12 mmol/L (10-20); BUN (Urea Nitrogen) 24 mg/dL (9.8-20.1); Calc. Creatinine Clearance 65 mL/min (70-130); Calcium 9.4 mg/dL (7.8-10.44); Carbon Dioxide 30 mmol/L (22-29); Chloride 98 mmol/L (98-107); Estimated GFR 96; Glucose 85 mg/dL (70-105); Potassium 4.5 mmol/L (3.5-5.1); Sodium 135 mmol/L (136-145)
[2022-03-31] MEDS: tiZANidine HCl 4 MG TAB PO PRN ×2 (11:47→21:32)
[2022-03-31] MEDS: Nicotine 14 MG PATCH TOP SCH (16:22)
[2022-03-31] MEDS: traZODone HCl 150 MG TAB PO SCH (21:32)
[2022-03-31] MEDS: Pramipexole Di-HCl 0.25 MG TAB PO SCH (21:33)
[2022-03-31] MEDS: Benztropine 1 MG TAB PO SCH (21:33)
[2022-03-31] MEDS: Atorvastatin Calcium 20 MG TAB PO SCH (21:34)
[2022-03-31] MEDS: OLANZapine 5 MG TAB PO SCH (21:34)
[2022-03-31] MEDS: ZALEPLON 5 MG PO SCH (21:34)
[2022-04-01] MEDS: Budesonide 0.5 MG/2 ML NEB NEB SCH ×2 (07:30→18:38)
[2022-04-01] MEDS: guaiFENesin/DM ER PO SCH ×2 (08:50→20:49)
[2022-04-01] MEDS: HYDROcodone/Acetaminophen 10/325 mg Tablet PO PRN ×3 (08:50→22:08)
[2022-04-01] MEDS: busPIRone HCl 10 MG TAB PO SCH ×2 (08:50→20:52)
[2022-04-01] MEDS: predniSONE 20 MG TAB PO SCH (08:51)
[2022-04-01] MEDS: Oxybutynin 5 MG TAB PO SCH ×2 (08:51→20:53)
[2022-04-01] MEDS: FLUoxetine HCl 20 MG CAP PO SCH (08:51)
[2022-04-01] MEDS: Enoxaparin Sodium 40 MG/0.4 ML SYRINGE SC SCH (08:52)
[2022-04-01] MEDS: Cefdinir 300 MG CAP PO SCH ×2 (08:52→20:50)
[2022-04-01] MEDS: CeleCOXIB 100 MG CAP PO SCH ×2 (08:52→20:51)
[2022-04-01] MEDS: Senokot S 8.6-50 MG TAB PO PRN (08:54)
[2022-04-01] MEDS: Benzonatate 100 MG CAP PO PRN ×3 (08:54→22:08)
[2022-04-01] MEDS: tiZANidine HCl 4 MG TAB PO PRN (15:49)
[2022-04-01] MEDS: Nicotine 14 MG PATCH TOP SCH (17:22)
[2022-04-01] MEDS: Pramipexole Di-HCl 0.25 MG TAB PO SCH (20:49)
[2022-04-01] MEDS: Benztropine 1 MG TAB PO SCH (20:50)
[2022-04-01] MEDS: OLANZapine 5 MG TAB PO SCH (20:52)
[2022-04-01] MEDS: ZALEPLON 5 MG PO SCH (20:53)
[2022-04-01] MEDS: traZODone HCl 150 MG TAB PO SCH (20:53)
[2022-04-01] MEDS: Atorvastatin Calcium 20 MG TAB PO SCH (20:53)
[2022-04-02] MEDS: HYDROcodone/Acetaminophen 10/325 mg Tablet PO PRN ×3 (05:15→17:16)
[2022-04-02] MEDS: Budesonide 0.5 MG/2 ML NEB NEB SCH ×2 (07:01→18:34)
[2022-04-02] MEDS: Cefdinir 300 MG CAP PO SCH ×2 (08:10→20:19)
[2022-04-02] MEDS: busPIRone HCl 10 MG TAB PO SCH ×2 (08:10→20:19)
[2022-04-02] MEDS: Enoxaparin Sodium 40 MG/0.4 ML SYRINGE SC SCH (08:10)
[2022-04-02] MEDS: predniSONE 20 MG TAB PO SCH (08:10)
[2022-04-02] MEDS: Benzonatate 100 MG CAP PO PRN ×2 (08:10→17:16)
[2022-04-02] MEDS: CeleCOXIB 100 MG CAP PO SCH ×2 (08:10→20:19)
[2022-04-02] MEDS: FLUoxetine HCl 20 MG CAP PO SCH (08:11)
[2022-04-02] MEDS: guaiFENesin/DM ER PO SCH ×2 (08:11→20:19)
[2022-04-02] MEDS: Oxybutynin 5 MG TAB PO SCH ×2 (08:11→20:19)
[2022-04-02] MEDS: Nicotine 14 MG PATCH TOP SCH (17:16)
[2022-04-02] MEDS: ZALEPLON 5 MG PO SCH (20:18)
[2022-04-02] MEDS: Pramipexole Di-HCl 0.25 MG TAB PO SCH (20:19)
[2022-04-02] MEDS: traZODone HCl 150 MG TAB PO SCH (20:19)
[2022-04-02] MEDS: Benztropine 1 MG TAB PO SCH (20:19)
[2022-04-02] MEDS: OLANZapine 5 MG TAB PO SCH (20:19)
[2022-04-02] MEDS: Atorvastatin Calcium 20 MG TAB PO SCH (20:19)
[2022-04-03] MEDS: HYDROcodone/Acetaminophen 10/325 mg Tablet PO PRN ×4 (02:13→20:47)
[2022-04-03] MEDS: Senokot S 8.6-50 MG TAB PO PRN (02:17)
[2022-04-03] MEDS: Budesonide 0.5 MG/2 ML NEB NEB SCH ×2 (06:46→19:33)
[2022-04-03] MEDS: Benzonatate 100 MG CAP PO PRN ×3 (08:51→20:45)
[2022-04-03] MEDS: CeleCOXIB 100 MG CAP PO SCH ×2 (08:52→20:46)
[2022-04-03] MEDS: predniSONE 20 MG TAB PO SCH (08:53)
[2022-04-03] MEDS: Enoxaparin Sodium 40 MG/0.4 ML SYRINGE SC SCH (08:53)
[2022-04-03] MEDS: Oxybutynin 5 MG TAB PO SCH ×2 (08:53→20:46)
[2022-04-03] MEDS: busPIRone HCl 10 MG TAB PO SCH ×2 (08:53→20:45)
[2022-04-03] MEDS: Cefdinir 300 MG CAP PO SCH ×2 (08:53→20:45)
[2022-04-03] MEDS: FLUoxetine HCl 20 MG CAP PO SCH (08:53)
[2022-04-03] MEDS: guaiFENesin/DM ER PO SCH ×2 (08:53→20:46)
[2022-04-03] MEDS: Nicotine 14 MG PATCH TOP SCH (16:24)
[2022-04-03] MEDS: ZALEPLON 5 MG PO SCH (20:44)
[2022-04-03] MEDS: Benztropine 1 MG TAB PO SCH (20:45)
[2022-04-03] MEDS: traZODone HCl 150 MG TAB PO SCH (20:46)
[2022-04-03] MEDS: Atorvastatin Calcium 20 MG TAB PO SCH (20:47)
[2022-04-03] MEDS: tiZANidine HCl 4 MG TAB PO PRN (20:54)
[2022-04-03] MEDS: Pramipexole Di-HCl 0.25 MG TAB PO SCH (20:54)
[2022-04-03] MEDS: OLANZapine 5 MG TAB PO SCH (20:55)
[2022-04-04] MEDS: HYDROcodone/Acetaminophen 10/325 mg Tablet PO PRN ×3 (03:58→18:39)
[2022-04-04] MEDS: Budesonide 0.5 MG/2 ML NEB NEB SCH ×2 (06:22→18:48)
[2022-04-04] MEDS: Enoxaparin Sodium 40 MG/0.4 ML SYRINGE SC SCH (09:03)
[2022-04-04] MEDS: CeleCOXIB 100 MG CAP PO SCH ×2 (09:03→20:35)
[2022-04-04] MEDS: busPIRone HCl 10 MG TAB PO SCH ×2 (09:04→20:35)
[2022-04-04] MEDS: guaiFENesin/DM ER PO SCH ×2 (09:04→20:36)
[2022-04-04] MEDS: Cefdinir 300 MG CAP PO SCH ×2 (09:05→20:35)
[2022-04-04] MEDS: predniSONE 20 MG TAB PO SCH (09:05)
[2022-04-04] MEDS: FLUoxetine HCl 20 MG CAP PO SCH (09:05)
[2022-04-04] MEDS: Oxybutynin 5 MG TAB PO SCH ×2 (09:05→20:36)
[2022-04-04] MEDS: Benzonatate 100 MG CAP PO PRN ×2 (12:26→18:39)
[2022-04-04] MEDS: Nicotine 14 MG PATCH TOP SCH (17:08)
[2022-04-04] MEDS: ZALEPLON 5 MG PO SCH (20:34)
[2022-04-04] MEDS: OLANZapine 5 MG TAB PO SCH (20:34)
[2022-04-04] MEDS: Benztropine 1 MG TAB PO SCH (20:35)
[2022-04-04] MEDS: Pramipexole Di-HCl 0.25 MG TAB PO SCH (20:35)
[2022-04-04] MEDS: Atorvastatin Calcium 20 MG TAB PO SCH (20:36)
[2022-04-04] MEDS: traZODone HCl 150 MG TAB PO SCH (20:36)
[2022-04-05] MEDS: HYDROcodone/Acetaminophen 10/325 mg Tablet PO PRN ×3 (03:15→14:54)
[2022-04-05] MEDS: Budesonide 0.5 MG/2 ML NEB NEB SCH (07:17)
[2022-04-05 08:34] VITALS: BP 107/73; TEMP 98.1
[2022-04-05] MEDS: Enoxaparin Sodium 40 MG/0.4 ML SYRINGE SC SCH (08:37)
[2022-04-05] MEDS: FLUoxetine HCl 20 MG CAP PO SCH (08:38)
[2022-04-05] MEDS: busPIRone HCl 10 MG TAB PO SCH (08:38)
[2022-04-05] MEDS: CeleCOXIB 100 MG CAP PO SCH (08:38)
[2022-04-05] MEDS: Oxybutynin 5 MG TAB PO SCH (08:38)
[2022-04-05] MEDS: guaiFENesin/DM ER PO SCH (08:39)
[2022-04-05] MEDS: Cefdinir 300 MG CAP PO SCH (08:39)
[2022-04-05] MEDS: predniSONE 20 MG TAB PO SCH (08:39)
[2022-04-05] MEDS: Benzonatate 100 MG CAP PO PRN (08:39)
[2022-04-05] MEDS: Nicotine 14 MG PATCH TOP SCH (16:15)
== END 2022-04-05 16:15 | DRG 196 ==
LOC: ERS 11:13 → SUATTDRO 11:13 → T4-B 15:14 → OBSVTOIN 03-23 14:34
PROVIDERS: ADMIT Internal Medicine; ATTEND Internal Medicine
DX: J84.10 Pulmonary fibrosis, unspecified (principal); Z66 Do not resuscitate; Z20.822 Contact with and (suspected) exposure to COVID-19; J15.9 Unspecified bacterial pneumonia; J96.21 Acute and chronic respiratory failure with hypoxia; J44.1 Chronic obstructive pulmonary disease with (acute) exacerbation; E44.0 Moderate protein-calorie malnutrition; Z68.1 Body mass index [BMI] 19.9 or less, adult; F14.10 Cocaine abuse, uncomplicated; M10.9 Gout, unspecified; F31.9 Bipolar disorder, unspecified; F41.9 Anxiety disorder, unspecified; F17.210 Nicotine dependence, cigarettes, uncomplicated; G47.00 Insomnia, unspecified; E78.5 Hyperlipidemia, unspecified; Z28.21 Immunization not carried out because of patient refusal; Z88.1 Allergy status to other antibiotic agents; Z99.81 Dependence on supplemental oxygen; Z79.899 Other long term (current) drug therapy; Z79.51 Long term (current) use of inhaled steroids; Z79.52 Long term (current) use of systemic steroids; Z90.710 Acquired absence of both cervix and uterus; Z71.51 Drug abuse counseling and surveillance of drug abuser
CPT/HCPCS: 36415; 36600; 71045; 80048; 80053; 80306; 81001; 82805; 83690; 83880; 84484; 85025; 87449; 87811; 87899; 93005; 94640; 94644; 94760; 96372; 96374; 96375; G0378; J0696; J1650; J2405; J2930; J3490; J7512; J7611; J7620; J7626

== ENCOUNTER 2022-05-23 16:39 | Inpatient (IN) | payer MEDICARE, MEDICAID ==
[2022-05-23] MEDS ORDERED: Ipratropium Bromide 2.5 ml Neb ONE (16:54)
[2022-05-23] MEDS ORDERED: Albuterol Sulfate 2.5 mg/3 ml Neb ONE (16:54)
[2022-05-23 17:07] LABS: #Basophils 0.1 thou/uL (0.0-0.2); #Lymphocytes 0.3 thou/uL (1.20-3.40); #Monocytes 0.3 thou/uL (0.11-0.59); #Neutrophils 14.7 thou/uL (1.40-6.50); %Basophils 0.7 % (0.0-1.0); %Eosinophils 0.2 % (0.0-10.0); %Monocytes 1.8 % (0.0-10.0); %Neutrophils 95.4 % (42.0-75.0); Hemoglobin 10.9 g/dL (12.0-16.0); Mean Corpuscular HGB CONC 32.9 g/dL (32.0-36.0); Mean Corpuscular Volume 94.3 fl (78.0-98.0); Mean Platelet Volume 6.6 fL (7.4-10.4); Platelet Count 318 10x3/uL (130-400); RBC Distribution Width 13.3 % (11.5-14.5); Red Blood Cell (RBC) Count 3.51 mill/uL (4.20-5.40); White Blood Cell (WBC) Count 15.4 10x3/uL (4.8-10.8)
[2022-05-23] MEDS ORDERED: LORazepam 2 MG/ML SYR.(CARPUJECT) ONE (17:24)
[2022-05-23 17:30] LABS: ALT (SGPT) 18 U/L (8-55); AST (SGOT) 29 U/L (5-34); Albumin 3.5 g/dL (3.5-5.0); Alkaline Phosphatase 104 U/L (40-110); Anion Gap 15 mmol/L (10-20); BUN (Urea Nitrogen) 15 mg/dL (9.8-20.1); Bilirubin, Total 0.5 mg/dL (0.2-1.2); Calc. Creatinine Clearance 0 mL/min (70-130); Calcium 8.7 mg/dL (7.8-10.44); Carbon Dioxide 19 mmol/L (22-29); Chloride 108 mmol/L (98-107); Estimated GFR 90; Globulin 3.3 g/dL (2.4-3.5); Glucose 174 mg/dL (70-105); Potassium 4.4 mmol/L (3.5-5.1); Protein, Total 6.8 g/dL (6.0-8.3); Sodium 138 mmol/L (136-145)
[2022-05-23 17:50] LABS: CKMB 2.9 ng/mL (0-6.6)
[2022-05-23] MEDS ORDERED: Acetaminophen 325 MG TAB PO PRN (18:19)
[2022-05-23 18:40] LABS: SARS-CoV-2 NAA Rapid Test Not Detected (NotDetected)
[2022-05-23] MEDS ORDERED: Piperacillin/Tazobactam 3.375 GM in Sodium Chloride 0.9% 100 ML IVPB SCH (18:45)
[2022-05-23] MEDS: Mometasone/Formoterol 200/5 60 PUFF INH SCH (19:22)
[2022-05-23 20:18] LABS: Lactic Acid 1.5 mmol/L (0.5-2.2)
[2022-05-23 20:25] LABS: Troponin I 0.026 ng/mL (< 0.028)
[2022-05-23 21:24] VITALS: BMI 19.8
[2022-05-23] MEDS ORDERED: Piperacillin/Tazobactam 4.5 GM in Sodium Chloride 0.9% 100 ML IVPB SCH (22:00)
[2022-05-23 22:09] LABS: Actual Bicarbonate (HCO3a) 24.1 mEq/L (22-28); Base Excess (BEa) -1.8 mEq/L (-2.0 to +3.0); Calcium, Ionized (arterial) 1.16 mmol/L (1.12-1.30); Carboxyhemoglobin (COHb) 0.9 gm% (0.0-3.0); Hemoglobin (Hb) 10.8 g/dL (12.0-16.0); Potassium - ABG Lab 3.99 mmol/L (3.70-5.30); pH, Arterial 7.34 (7.35-7.45)
[2022-05-23 22:10] LABS: O2 Tension (PaO2), arterial 59.5 mmHg (80.0-100.0); Puncture Site RRA
[2022-05-23] MEDS ORDERED: Morphine 4 MG/ML VIAL SLOW IVP SCH (22:15)
[2022-05-23] MEDS: Famotidine 20 MG TAB PO SCH (22:26)
[2022-05-23] MEDS: Doxycycline 100 MG CAP PO SCH (22:26)
[2022-05-23] MEDS: Atorvastatin Calcium 20 MG TAB PO SCH (22:26)
[2022-05-24] MEDS: Piperacillin/Tazobactam 3.375 GM in Sodium Chloride 0.9% 100 ML IVPB SCH ×3 (00:05→16:24)
[2022-05-24] MEDS: methylPREDNISolone Sod Succ 40 MG VIAL IVP SCH ×4 (00:05→17:25)
[2022-05-24 04:21] LABS: Anion Gap 11 mmol/L (10-20); BUN (Urea Nitrogen) 13 mg/dL (9.8-20.1); Calc. Creatinine Clearance 85 mL/min (70-130); Calcium 8.9 mg/dL (7.8-10.44); Carbon Dioxide 24 mmol/L (22-29); Chloride 108 mmol/L (98-107); Estimated GFR 104; Glucose 146 mg/dL (70-105); Sodium 139 mmol/L (136-145)
[2022-05-24 06:35] LABS: Band 14 % (5-11); Hemoglobin 10.4 g/dL (12.0-16.0); Lymphocytes 2 % (21-51); MDiff Complete? YES; Mean Corpuscular HGB CONC 33.6 g/dL (32.0-36.0); Mean Corpuscular Hemoglobin 31.4 pg (27.0-31.0); Mean Corpuscular Volume 93.4 fl (78.0-98.0); Mean Platelet Volume 6.9 fL (7.4-10.4); Monocytes 2 % (0-10); Neutrophil 82 % (42-75); Platelet Count 301 10x3/uL (130-400); RBC Distribution Width 13.2 % (11.5-14.5); Red Blood Cell (RBC) Count 3.31 mill/uL (4.20-5.40); White Blood Cell (WBC) Count 18.2 10x3/uL (4.8-10.8)
[2022-05-24] MEDS ORDERED: Morphine 4 MG/ML VIAL ONE ×2 (06:36→09:48)
[2022-05-24] MEDS ORDERED: Morphine 4 MG/ML VIAL SLOW IVP SCH (08:00)
[2022-05-24] MEDS: Fluticasone Propionate Nasal Spray 16 gm Bottle NASAL SCH (09:24)
[2022-05-24] MEDS: Doxycycline 100 MG CAP PO SCH ×3 (09:24→20:47)
[2022-05-24] MEDS: FLUoxetine HCl 20 MG CAP PO SCH (09:24)
[2022-05-24] MEDS: Enoxaparin Sodium 40 MG/0.4 ML SYRINGE SC SCH (09:24)
[2022-05-24] MEDS: Famotidine 20 MG TAB PO SCH ×3 (09:24→20:47)
[2022-05-24] MEDS ORDERED: Albuterol Sulfate 2.5 mg/3 ml Neb NEB PRN (09:42)
[2022-05-24] MEDS: Morphine 4 MG/ML VIAL SLOW IVP PRN ×3 (13:37→20:40)
[2022-05-24] MEDS ORDERED: Polyethylene Glycol 3350 17 GM Packet PO PRN (15:10)
[2022-05-24] MEDS: Lorazepam 1 MG TAB PO PRN ×2 (16:24→20:40)
[2022-05-24] MEDS: Mometasone/Formoterol 200/5 60 PUFF INH SCH ×2 (16:54→18:32)
[2022-05-24] MEDS: Pramipexole Di-HCl 0.25 MG TAB PO SCH ×2 (20:39→20:48)
[2022-05-24] MEDS: busPIRone HCl 10 MG TAB PO SCH ×2 (20:39→20:46)
[2022-05-24] MEDS: Atorvastatin Calcium 20 MG TAB PO SCH ×2 (20:40→20:49)
[2022-05-24] MEDS: Senokot S 8.6-50 MG TAB PO SCH (20:46)
[2022-05-24] MEDS: Lorazepam 2 MG/ML VIAL SLOW IVP PRN (22:19)
[2022-05-25] MEDS: methylPREDNISolone Sod Succ 40 MG VIAL IVP SCH ×3 (00:10→12:25)
[2022-05-25] MEDS: Piperacillin/Tazobactam 3.375 GM in Sodium Chloride 0.9% 100 ML IVPB SCH ×2 (00:10→09:24)
[2022-05-25] MEDS: Morphine 4 MG/ML VIAL SLOW IVP PRN ×4 (01:32→13:22)
[2022-05-25] MEDS: Lorazepam 2 MG/ML VIAL SLOW IVP PRN ×4 (03:44→15:26)
[2022-05-25 04:05] VITALS: TEMP 98.1
[2022-05-25] MEDS: Mometasone/Formoterol 200/5 60 PUFF INH SCH (07:15)
[2022-05-25] MEDS ORDERED: OLANZapine 5 MG TAB PO SCH (09:00)
[2022-05-25] MEDS ORDERED: Atorvastatin Calcium 20 MG TAB PO SCH (09:00)
[2022-05-25] MEDS: busPIRone HCl 10 MG TAB PO SCH (09:26)
[2022-05-25] MEDS: Fluticasone Propionate Nasal Spray 16 gm Bottle NASAL SCH (09:27)
[2022-05-25] MEDS: Doxycycline 100 MG CAP PO SCH (09:27)
[2022-05-25] MEDS: FLUoxetine HCl 20 MG CAP PO SCH (09:27)
[2022-05-25] MEDS: Enoxaparin Sodium 40 MG/0.4 ML SYRINGE SC SCH (09:27)
[2022-05-25] MEDS: Famotidine 20 MG TAB PO SCH (09:27)
[2022-05-25] MEDS: Senokot S 8.6-50 MG TAB PO SCH (09:28)
[2022-05-25] MEDS: Pramipexole Di-HCl 0.25 MG TAB PO SCH (09:28)
== END 2022-05-25 15:30 | disposition hospice, inpatient (51) | DRG 871 ==
LOC: ERS 16:39 → IMCU/EMU 17:52
PROVIDERS: ADMIT Internal Medicine; ATTEND Internal Medicine
DX: A41.9 Sepsis, unspecified organism (principal); G93.41 Metabolic encephalopathy; I21.4 Non-ST elevation (NSTEMI) myocardial infarction; J18.9 Pneumonia, unspecified organism; J96.21 Acute and chronic respiratory failure with hypoxia; J44.1 Chronic obstructive pulmonary disease with (acute) exacerbation; J44.0 Chronic obstructive pulmonary disease with (acute) lower respiratory infection; Z51.5 Encounter for palliative care; E78.5 Hyperlipidemia, unspecified; M10.9 Gout, unspecified; J84.10 Pulmonary fibrosis, unspecified; F14.10 Cocaine abuse, uncomplicated; F41.9 Anxiety disorder, unspecified; F31.9 Bipolar disorder, unspecified; Z87.891 Personal history of nicotine dependence; Z90.710 Acquired absence of both cervix and uterus; Z88.1 Allergy status to other antibiotic agents; Z79.899 Other long term (current) drug therapy; Z79.51 Long term (current) use of inhaled steroids; Z79.52 Long term (current) use of systemic steroids
CPT/HCPCS: 36415; 36416; 36600; 80048; 82553; 82805; 83605; 83880; 85025; 93005; 94640; 94660; 94760; 96374; J1650; J2060; J2270; J2543; J2920; J3490; J7611; J7620; U0002

== ENCOUNTER 2022-05-25 15:41 | Inpatient (IN) | payer OTHER ==
[2022-05-25 15:59] VITALS: BMI 19.8
[2022-05-25] MEDS ORDERED: Morphine 4 MG/ML VIAL SLOW IVP PRN (16:00)
[2022-05-25] MEDS ORDERED: Lorazepam 2 MG/ML VIAL SLOW IVP PRN (16:01)
[2022-05-25] MEDS ORDERED: Scopolamine 1.5 mg/72 hour Patch TOP PRN (16:02)
[2022-05-25] MEDS: Morphine 4 MG/ML VIAL SLOW IVP SCH ×5 (16:27→23:40)
[2022-05-25] MEDS: Lorazepam 2 MG/ML VIAL SLOW IVP SCH ×3 (17:01→23:45)
[2022-05-26] MEDS: Morphine 4 MG/ML VIAL SLOW IVP SCH ×7 (01:35→14:10)
[2022-05-26] MEDS: Lorazepam 2 MG/ML VIAL SLOW IVP SCH ×3 (05:36→14:10)
== END 2022-05-26 14:46 | disposition expired | DRG 951 ==
LOC: IMCU/EMU 15:41
PROVIDERS: ADMIT Family Medicine; ATTEND Family Medicine
DX: Z51.5 Encounter for palliative care (principal); J96.21 Acute and chronic respiratory failure with hypoxia; J44.1 Chronic obstructive pulmonary disease with (acute) exacerbation; Z66 Do not resuscitate; J84.10 Pulmonary fibrosis, unspecified; F31.9 Bipolar disorder, unspecified; M10.9 Gout, unspecified; F14.10 Cocaine abuse, uncomplicated; Z99.81 Dependence on supplemental oxygen; Z79.51 Long term (current) use of inhaled steroids; Z79.899 Other long term (current) drug therapy; Z90.710 Acquired absence of both cervix and uterus
CPT/HCPCS: J2060; J2270